=== PATIENT | female | born 1975 | race Caucasian/White ===

== ENCOUNTER 2019-03-22 17:21 | Emergency (ER) | payer OTHER ==
--- OUTSIDE RECORDS SUMMARY | 2019-03-22 17:27 | XMS REPORT | Clinical Summary ---
:1975 Author Organization [facility] Address [address] [place] [address] Care Team Providers Name Role Phone Bebeto Rivas DO Primary Care Provider Allergies Active Allergy Reactions Severity Noted Date Comments Morphine Itching 10/06/2006 Propoxyphene N-Acetaminophen Itching 10/06/2006 Medications Medication Sig Dispensed Refills Start Date End Date Status lamoTRIgine Take 100 mg 0 Active (LaMICtal) 100 MG by mouth tablet daily. methadone (DOLOPHINE) TAKE ONE (1) 0 08/24/2018 Active 10 MG tablet TABLET(S) BY MOUTH EVERY EIGHT HOURS. hydrOXYzine (ATARAX) TAKE ONE (1) 4 02/24/2019 Active 50 MG tablet TABLET(S) BY MOUTH EVERY SIX HOURS NEEDED. ferrous sulfate 0 Active (IRON) 325 mg (65 mg iron) capsule, extended release cyanocobalamin 1,000 Inject into 0 01/13/2014 Active mcg/mL injection the shoulder, thigh, or buttocks. chlorzoxazone 0 02/21/2019 Active (PARAFON FORTE) 500 mg tablet butalbital-acetaminop 0 02/13/2019 Active hen-caff (FIORICET, ESGIC) 50-325-40 mg per tablet atorvastatin 0 01/20/2019 Active (LIPITOR) 10 MG tablet ELIQUIS 5 mg tablet Take 1 5 07/20/2017 03/09/2019 Discontinued tablet by mouth 2 (two) times a day. traMADol (ULTRAM) 50 Take 1 0 06/09/2017 03/09/2019 Discontinued mg tablet tablet by mouth every 6 (six) hours as needed. Active Problems Problem Noted Date Right leg weakness 07/29/2017 Encounters Date Type Specialty Care Team Description 03/09/2019 Office Visit Orthopedic Surgery Meghana Walker Cervical spine pain (Primary Dx); MANUEL [place] Cervical spinal stenosis; Cervical disc disorder with radiculopathy; Displacement of cervical intervertebral disc without myelopathy; Cervicalgia after 03/21/2018 Immunizations Name Dates Previously Given Next Due FLUCELVAX QUAD PF (0.5mL syringe) 07/30/2017 Family History Medical History Relation Name Comments Cancer Father Diabetes Father Heart disease Father Hypertension Father Hypertension Mother Seizures Mother Relation Name Status Comments Father Mother Social History Tobacco Use Types Packs/Day Years Used Date Never Smoker Smokeless Tobacco: Never Used Alcohol Use Drinks/Week oz/Week Comments No Sex Assigned at Date Recorded Female 03/02/2019 12:40 PM CDT Job Start Date Occupation Industry Not on file Not on file Not on file Travel History Travel Start Travel End No recent travel history available. Last Filed Vital Signs Vital Sign Reading Time Taken Blood Pressure 132/73 03/09/2019 9:14 AM CDT Pulse 92 03/09/2019 9:14 AM CDT Temperature 36.9 C (98.4 F) 03/09/2019 9:14 AM CDT Respiratory Rate - - Oxygen Saturation - - Inhaled Oxygen Concentration - - Weight 75.3 kg (166 lb) 03/09/2019 9:14 AM CDT Height 175.3 cm (5' 9") 03/09/2019 9:14 AM CDT Body Mass Index 24.51 03/09/2019 9:14 AM CDT Plan of Treatment Date Type Specialty Care Team Description 03/30/2019 Office Visit Orthopedic Surgery DeniseMeghana rodriguez [place] [id number] [facility] [address] [place] [address] [phone] Health Maintenance Due Date Last Done Comments INFLUENZA VACCINE 06/02/2019 07/30/2017 Procedures Procedure Name Priority Date/Time Associated Diagnosis Comments XR CERVICAL SPINE 2 Routine 03/09/2019 9:22 AM Cervical spine pain Results for this OR 3 VW CDT procedure are in the results section. after 03/21/2018 Results XR Cervical Spine 2 Or 3 Vw (03/09/2019 9:22 AM CDT) Specimen Narrative Performed At 2 view AP lateral cervical x-rays were taken in the office today.The [facility] x-rays show segmental kyphosis at C6-7 with anterior narrowing of the disc space.C5-6 also shows some evidence of kyphosis.Straightening of the cervical spine seen. Performing Organization Address [facility] Phone Number [facility] [address] [place] [address] after 03/21/2018 [facility] [place] (Home) [facility] [phone] [place] [address] (Work) Advance Directives Patient has advance care planning documents, and code status on file. For more information, please contact:Nitesh Lakhani[address] [place] [address] Code Status Date Activated Date Inactivated Comments Full Code 07/30/2017 1:11 AM 08/01/2017 5:05 PM Code Status decision reached by: Patient
[2019-03-22 18:40] LABS: Absolute Lymphocytes (CBC) 2.3 K/uL (0.7-4.9); Absolute Monocytes 0.5 K/uL (0.1-1.3); Absolute Neutrophil 2.2 K/uL (1.8-8.0); Basophils % 0.9 % (0-1.3); Eosinophils % 2.1 % (0-4.4); Lymphocytes % 44.2 % (15.3-44.8); Monocytes % 10.2 % (3.3-12.3); RBC Red Blood Cell Count 4.73 M/uL (3.86-4.86)
[2019-03-22 18:41] LABS: Protime INR 0.91
[2019-03-22 18:51] LABS: BUN Blood Urea Nitrogen 9 mg/dL (7-18); Bicarbonate 31 mmol/L (21-32); Glucose Level 74 mg/dL (74-106); NT PRO-BNP 45 pg/mL (<125); Potassium 3.9 mmol/L (3.5-5.1); Sodium Level 142 mmol/L (136-145); Troponin (Emerg Dept Use Only) < 0.02 ng/mL (0.0-0.045)
--- NOTE | 2019-03-22 19:29 | RAD REPORT ---
EXAM DESCRIPTION: CT - Head Brain Wo Cont - 03/22/2019 7:14 pm CLINICAL HISTORY: Numbness, extremity weakness COMPARISON: CT head September 2014 TECHNIQUE: Axial 5 mm thick images of the head were obtained without IV contrast. All CT scans are performed using dose optimization technique as appropriate and may include automated exposure control or mA/KV adjustment according to patient size. FINDINGS: No intracranial hemorrhage, mass, edema or shift of mid-line structures. No acute infarcti on changes seen. No abnormal extra-axial fluid collections. Ventricles are normal. Physiologic calcif ications are present. Intracranial findings are similar to comparison. Mastoid air cells and visualized portions of the paranasal sinuses are clear. No acute bony findings. IMPRESSION: Negative non-contrast CT head examination for acute or significant finding.
--- NOTE | 2019-03-22 19:31 | RAD REPORT ---
EXAM DESCRIPTION: CT - Chest For Pe Angio - 03/22/2019 7:17 pm CLINICAL HISTORY: Chest pain, shortness of breath, history of pulmonary embolism COMPARISON: Chest films same date TECHNIQUE: Dynamically enhanced 3 mm thick images of the chest were obtained during administration o f approximately 150mL Isovue 370 IV contrast. Coronal and oblique MIP reconstruction images were gene rated and reviewed. Exam utilizes a protocol to evaluate the pulmonary arterial tree. All CT scans are performed using dose optimization technique as appropriate and may include automated exposure control or mA/KV adjustment according to patient size. FINDINGS: No pulmonary emboli are identified. No sequela seen on prior pulmonary embolic disease. The aorta as imaged shows no acute or suspicious finding. No pericardial thickening or effusion. No infiltrate or mass in the lung parenchyma. No pleural effusion or pleural thickening. No mediastinal or hilar suspicious masses. No chest wall masses or abnormal axillary lymphadenopathy. IMPRESSION: No pulmonary emboli identified. No other significant or suspicious chest findings.
--- NOTE | 2019-03-22 19:37 | ER ---
Nurse's Notes [facility] Name: Lisseth Zapata Age: 43 yrs Sex: Female : 1975 Arrival Date: 03/22/2019 Time: 17:24 Bed 24 Private MD: Diagnosis: Paresthesia of skin;Shortness of breath Presentation: 03/22 17:41 Presenting complaint: Patient states: "I woke up during the night and I started gasping aj1 for air and my whole right side was numb and now I'm scared to go to sleep. Now my chest hurts when I take a deep breath. Plus my legs have been swelling." Patient reports that the numbness happened at 0300 this morning. Chocolate Molder are equal bilaterally patient ambulated to triage with a steady gait. Transition of care: patient was not received from another setting of care. Onset of symptoms was March 22, 2019 at 03:00. Risk Assessment: Do you want to hurt yourself or someone else? Patient reports no desire to harm self or others. Initial Sepsis Screen: Does the patient meet any 2 criteria? No. Patient's initial sepsis screen is negative. Does the patient have a suspected source of infection? No. Patient's initial sepsis screen is negative. Care prior to arrival: None. 17:41 Method Of Arrival: Ambulatory aj 17:41 Acuity: RAOUL 3 aj1 Triage Assessment: 17:44 General: Appears in no apparent distress. comfortable, Behavior is calm, cooperative, aj1 appropriate for age. Pain: Complains of pain in low back area, right leg, left leg and neck Pain currently is 8 out of 10 on a pain scale. Neuro: Level of Consciousness is awake, alert, obeys commands, Oriented to person, place, time, situation, Chocolate Molder are equal bilaterally Moves all extremities. Full function Gait is steady, Speech is normal, Facial symmetry appears normal. Respiratory: Reports shortness of breath on exertion Airway is patent Respiratory effort is even, unlabored, Respiratory pattern is regular, symmetrical, Onset: The symptoms/episode began/occurred last night, the patient has mild shortness of breath. 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 - Social history:: Smoking status: Patient/guardian denies using tobacco. - Ebola Screening: : Patient denies travel to an Ebola-affected area in the 21 days before illness onset. Screenin:29 Abuse screen: Denies threats or abuse. Denies injuries from another. Nutritional mg2 screening: No deficits noted. Tuberculosis screening: No symptoms or risk factors identified. Fall Risk IV access (20 points). Assessment: 19:29 General: Appears in no apparent distress. comfortable, Behavior is calm, cooperative. mg2 Pain: Complains of pain in back and low back area Pain does not radiate. Pain currently is 2 out of 10 on a pain scale. Neuro: Level of Consciousness is awake, alert, obeys commands, Oriented to person, place, time, situation. Cardiovascular: Capillary refill < 3 seconds Patient's skin is warm and dry. Cardiovascular: Rhythm is sinus rhythm. Respiratory: Airway is patent Respiratory effort is even, unlabored, Respiratory pattern is regular, symmetrical, Breath sounds are clear bilaterally. in right upper lobe, left upper lobe, right middle lobe and left lower lobe. Respiratory: Reports shortness of breath. GI: No signs and/or symptoms were reported involving the gastrointestinal system. : No signs and/or symptoms were reported regarding the genitourinary system. EENT: No signs and/or symptoms were reported regarding the EENT system. Derm: Skin is intact, is healthy with good turgor, Skin is pink, warm \\T\\ dry. normal. Musculoskeletal: Circulation, motion, and sensation intact. Capillary refill < 3 seconds. 19:47 Reassessment: Patient appears in no apparent distress at this time. Patient and/or mg2 family updated on plan of care and expected duration. Pain level reassessed. Patient is alert, oriented x 3, equal unlabored respirations, skin warm/dry/pink. Patient states feeling better. Vital Signs: 17:44 BP 133 / 89; Pulse 88; Resp 18; Temp 99.3(TE); Pulse Ox 99% on R/A; Weight 77.11 kg aj1 (R); Height 5 ft. 9 in. (175.26 cm) (R); Pain 8/10; 19:28 BP 113 / 74; Pulse 76; Resp 18; Temp 99; Pulse Ox 100% on R/A; mg2 17:44 Body Mass Index 25.10 (77.11 kg, 175.26 cm) aj1 NIH Stroke Scale Scores: 19:34 NIHSS Score: 0 [facility] ED Course: 17:24 Patient arrived in ED. mr 17:43 Triage completed. aj1 17:44 Arm band placed on Patient placed in an exam room. aj1 17:46 Tuan Sun PA is PHCP. jr8 17:46 Nabil Morrison MD is Attending Physician. jr8 17:50 Cj Altamirano, TAYLOR is Primary Nurse. mg2 18:03 Radiology exam delayed due to lab results not completed at this time. (BUN/Creatinine). vm2 18:22 Radiology exam delayed due to lab results not completed at this time. (BUN/Creatinine). vm2 18:39 Basic Metabolic Panel Sent. mg2 18:54 XRAY Chest (1 view) In Process Unspecified. EDMS 19:[address] vm2 19:15 CT Head Brain wo Cont In Process Unspecified. EDMS 19:17 CT Chest For PE Angio In Process Unspecified. EDMS 19:29 No provider procedures requiring assistance completed. Inserted saline lock: 20 gauge mg2 in right antecubital area, using aseptic technique. Blood collected. 19:31 Patient has correct armband on for positive identification. mg2 19:47 IV discontinued, intact, bleeding controlled, No redness/swelling at site. Pressure mg2 dressing applied. Administered Medications: No medications were administered Outcome: 19:36 Discharge ordered by . [facility] 19:47 Discharged to home ambulatory, with family. mg2 19:47 Condition: stable 19:47 Discharge instructions given to patient, Instructed on discharge instructions, follow up and referral plans. Demonstrated understanding of instructions, follow-up care. 19:59 Patient left the ED. mg2 NIH Stroke Scale - NIH Stroke Score Date: 03/22/2019 Time: 19:34 Total Score = 0 1a. Level of Consciousness (LOC) - 0(Alert) 1b. Level of Consciousness (LOC) (Year \\T\\ Age) - 0(Both) 1c. LOC Commands (Open \\T\\ Closes Eyes/Sole Scraper) - 0(Both) 2. Best Gaze (Lateral Gaze Paresis) - 0(Normal) 3. Visual Field Loss - 0(No visual loss) 4. Facial Palsy - 0(Normal) 5a. Left Arm: Motor (10-second hold) - 0(No drift) 5b. Right Arm: Motor (10-second hold) - 0(No drift) 6a. Left Leg: Motor (5-second hold - always test supine) - 0(No drift) 6b. Right Leg: Motor (5-second hold - always test supine) - 0(No drift) 7. Limb Ataxia (finger/nose \\T\\ heel/swanson - test with eyes open) - 0(Absent) 8. Sensory Loss (pinprick arms/legs/face) - 0(Normal) 9. Best Language: Aphasia (description/naming/reading) - 0(No aphasia) 10. Dysarthria (speech clarity - read or repeat words) - 0(Normal) 11. Extinction and Inattention (visual/tactile/auditory/spatial/personal) - 0(No abnormality) Initials: jr8 Signatures: Dispatcher [employer] Nancy Quintana RN RN aj1 Kaylin Chan Josh, PA PA jr8 Lashaun Mena [facility] Cj Altamirano RN RN mg2
--- NOTE | 2019-03-22 19:37 | EDPHYS ---
Physician Documentation [facility] Name: Lisseth Zapata Age: 43 yrs Sex: Female : 1975 Arrival Date: 03/22/2019 Time: 17:24 Bed 24 Private MD: ED Physician Nabil Morrison HPI: 03/22 19:34 This 43 yrs old Female presents to ER via Ambulatory with complaints of jr8 Breathing Difficulty, Leg Swelling, Right side numbness, High Blood Pressure. 19:34 The patient has shortness of breath at rest. Onset: The symptoms/episode began/occurred jr8 acutely, this morning. Duration: The symptoms are continuous. The patient's shortness of breath has no apparent modifying factors. Associated signs and symptoms: Pertinent positives: numbness to right side of body. Severity of symptoms: At their worst the symptoms were moderate in the emergency department the symptoms have improved mildly. The patient has not experienced similar symptoms in the past. The patient has not recently seen a physician. 19:34 Patient stated that she woke up from sleep gasping for air around 3 AM this morning. jr8 [place] as if she was "dying". Stated that the right side of her body felt numb as well . 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 - Social history:: Smoking status: Patient/guardian denies using tobacco. - Ebola Screening: : Patient denies travel to an Ebola-affected area in the 21 days before illness onset. ROS: 19:34 Eyes: Negative for injury, pain, redness, and discharge, ENT: Negative for injury, jr8 pain, and discharge, Neck: Negative for injury, pain, and swelling, Cardiovascular: Negative for chest pain, palpitations, and edema, Abdomen/GI: Negative for abdominal pain, nausea, vomiting, diarrhea, and constipation, Back: Negative for injury and pain, MS/Extremity: Negative for injury and deformity, Skin: Negative for injury, rash, and discoloration. 19:34 Respiratory: Positive for shortness of breath, Negative for cough, dyspnea on exertion, sputum production, wheezing. 19:34 Neuro: Positive for numbness, of the right arm and right leg. Exam: 19:34 Eyes: Pupils equal round and reactive to light, extra-ocular motions intact. Lids and jr8 lashes normal. Conjunctiva and sclera are non-icteric and not injected. Cornea within normal limits. Periorbital areas with no swelling, redness, or edema. ENT: Nares patent. No nasal discharge, no septal abnormalities noted. Tympanic membranes are normal and external auditory canals are clear. Oropharynx with no redness, swelling, or masses, exudates, or evidence of obstruction, uvula midline. Mucous membranes moist. Neck: Trachea midline, no thyromegaly or masses palpated, and no cervical lymphadenopathy. Supple, full range of motion without nuchal rigidity, or vertebral point tenderness. No Meningismus. Cardiovascular: Regular rate and rhythm with a normal S1 and S2. No gallops, murmurs, or rubs. Normal PMI, no JVD. No pulse deficits. Respiratory: Lungs have equal breath sounds bilaterally, clear to auscultation and percussion. No rales, rhonchi or wheezes noted. No increased work of breathing, no retractions or nasal flaring. Abdomen/GI: Soft, non-tender, with normal bowel sounds. No distension or tympany. No guarding or rebound. No evidence of tenderness throughout. Back: No spinal tenderness. No costovertebral tenderness. Full range of motion. Skin: Warm, dry with normal turgor. Normal color with no rashes, no lesions, and no evidence of cellulitis. MS/ Extremity: Pulses equal, no cyanosis. Neurovascular intact. Full, normal range of motion. Neuro: Awake and alert, GCS 15, oriented to person, place, time, and situation. Cranial nerves II-XII grossly intact. Motor strength 5/5 in all extremities. Sensory grossly intact. Cerebellar exam normal. Normal gait. Vital Signs: 17:44 BP 133 / 89; Pulse 88; Resp 18; Temp 99.3(TE); Pulse Ox 99% on R/A; Weight 77.11 kg aj1 (R); Height 5 ft. 9 in. (175.26 cm) (R); Pain 8/10; 19:28 BP 113 / 74; Pulse 76; Resp 18; Temp 99; Pulse Ox 100% on R/A; mg2 17:44 Body Mass Index 25.10 (77.11 kg, 175.26 cm) aj1 NIH Stroke Scale Scores: 19:34 NIHSS Score: 0 jr MDM: 17:46 Patient medically screened. 19:34 Differential diagnosis: Anxiety Reaction Myocardial Infarction pneumonia, Pneumothorax jr8 Psychogenic pulmonary edema, Pulmonary Embolism Unstable Angina. Data reviewed: vital signs, nurses notes, lab test result(s), EKG, radiologic studies, CT scan, plain films, and as a result, I will discharge patient. Data interpreted: Pulse oximetry: on room air is 100 %. Interpretation: normal. Counseling: I had a detailed discussion with the patient and/or guardian regarding: the historical points, exam findings, and any diagnostic results supporting the discharge/admit diagnosis, lab results, radiology results, the need for outpatient follow up, a family practitioner, to return to the emergency department if symptoms worsen or persist or if there are any questions or concerns that arise at home. 03/22 18:00 Order name: Basic Metabolic Panel [facility] 03/22 18:00 Order name: CBC with Diff; Complete Time: 19:28 [facility] 03/22 18:00 Order name: Magnesium; Complete Time: 19:28 [facility] 03/22 18:00 Order name: NT PRO-BNP; Complete Time: 19:28 [facility] 03/22 18:00 Order name: PT-INR; Complete Time: 19:28 [facility] 03/22 18:00 Order name: Troponin (emerg Dept Use Only); Complete Time: 19:28 [facility] 03/22 18:00 Order name: XRAY Chest (1 view); Complete Time: 19:54 [facility] 03/22 18:00 Order name: EKG; Complete Time: 18:08 [facility] 03/22 18:00 Order name: Cardiac monitoring; Complete Time: 18:39 [facility] 03/22 18:00 Order name: EKG - Nurse/Tech; Complete Time: 18:40 [facility] 03/22 18:01 Order name: CT Head Brain wo Cont; Complete Time: 19:33 [facility] 03/22 18:01 Order name: CT Chest For PE Angio; Complete Time: 19:33 [facility] 03/22 18:08 Order name: Basic Metabolic Panel; Complete Time: 19:28 [facility] 03/22 18:00 Order name: IV Saline Lock; Complete Time: 18:39 03/22 18:00 Order name: Labs collected and sent; Complete Time: 18:39 03/22 18:00 Order name: O2 Per Protocol; Complete Time: 18:39 03/22 18:00 Order name: O2 Sat Monitoring; Complete Time: 18:39 Administered Medications: No medications were administered Disposition: 03/23 07:03 Co-signature as Attending Physician, Nabil Morrison MD. rn Disposition: 03/22/19 19:36 Discharged to Home. Impression: Paresthesia of skin, Shortness of breath. - Condition is Stable. - Discharge Instructions: Paresthesia, Shortness of Breath. - Medication Reconciliation Form, Thank You Letter, Antibiotic Education, Prescription Opioid Use form. - Follow up: Private Physician; When: 2 - 3 days; Reason: Recheck today's complaints, Continuance of care, Re-evaluation by your physician. - Problem is new. - Symptoms have improved. NIH Stroke Scale - NIH Stroke Score Date: 03/22/2019 Time: 19:34 Total Score = 0 1a. Level of Consciousness (LOC) - 0(Alert) 1b. Level of Consciousness (LOC) (Year \\T\\ Age) - 0(Both) 1c. LOC Commands (Open \\T\\ Closes Eyes/Central Office Mechanic) - 0(Both) 2. Best Gaze (Lateral Gaze Paresis) - 0(Normal) 3. Visual Field Loss - 0(No visual loss) 4. Facial Palsy - 0(Normal) 5a. Left Arm: Motor (10-second hold) - 0(No drift) 5b. Right Arm: Motor (10-second hold) - 0(No drift) 6a. Left Leg: Motor (5-second hold - always test supine) - 0(No drift) 6b. Right Leg: Motor (5-second hold - always test supine) - 0(No drift) 7. Limb Ataxia (finger/nose \\T\\ heel/swanson - test with eyes open) - 0(Absent) 8. Sensory Loss (pinprick arms/legs/face) - 0(Normal) 9. Best Language: Aphasia (description/naming/reading) - 0(No aphasia) 10. Dysarthria (speech clarity - read or repeat words) - 0(Normal) 11. Extinction and Inattention (visual/tactile/auditory/spatial/personal) - 0(No abnormality) Initials: jr8 Signatures: Dispatcher [employer] [facility] Nancy De La Rosa RN RN aj1 Nabil Morrison MD MD rn Roszak, Josh, PA PA jr8 Cj Altamirano, RN RN mg2 Corrections: (The following items were deleted from the chart) 03/22 18:30 18:10 Chest Single View ordered. [facility] 19:59 19:36 03/22/2019 19:36 Discharged to Home. Impression: Paresthesia of skin; mg2 Shortness of breath. Condition is Stable. Forms are Medication Reconciliation Form, Thank You Letter, Antibiotic Education, Prescription Opioid Use. Follow up: Private Physician; When: 2 - 3 days; Reason: Recheck today's complaints, Continuance of care, Re-evaluation by your physician. Problem is new. Symptoms have improved. jr8
--- NOTE | 2019-03-22 19:49 | RAD REPORT ---
EXAM DESCRIPTION: RAD - Chest Single View - 03/22/2019 6:54 pm CLINICAL HISTORY: Chest pain, shortness of breath COMPARISON: January 2017 TECHNIQUE: AP portable chest image was obtained 1830 hours . FINDINGS: Lungs are clear. Heart and vasculature are normal. No measurable pleural effusion and no p neumothorax. No acute bony abnormality seen. No acute aortic findings suspected. IMPRESSION: No acute cardiopulmonary process. No significant change from comparison.
[2019-03-22 20:06] VITALS: BP 113/74; TEMP 99; O2SAT 100
--- NOTE | 2019-03-23 10:31 | EKG ---
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
== END 2019-03-22 19:59 | disposition home or self-care (01) ==
LOC: ER 17:21
DX: R20.2 Paresthesia of skin (principal); Z88.5 Allergy status to narcotic agent; Z88.8 Allergy status to other drugs, medicaments and biological substances
CPT/HCPCS: 93005; 85025; 80048; 36415; 83735; 85610; 84484; 83880; 70450; 71275; 71045; 99284; Q9967

== ENCOUNTER 2021-06-24 17:30 | Emergency (ER) | payer OTHER ==
[2021-06-24 18:14] LABS: Absolute Lymphocytes (CBC) 2.5 K/uL (0.7-4.9); Basophils % 1.3 % (0-1.3); Hematocrit 39.4 % (36.0-45.0); Lymphocytes % 41.1 % (15.3-44.8); MPV 7.4 fL (7.6-11.3); RBC Red Blood Cell Count 4.65 M/uL (3.86-4.86)
[2021-06-24 18:37] LABS: ALT/SGPT 27 U/L (12-78); AST/SGOT 17 U/L (15-37); Albumin 3.6 g/dL (3.4-5.0); Alkaline Phosphatase 95 U/L (45-117); BUN Blood Urea Nitrogen 16 mg/dL (7-18); Bicarbonate 29 mmol/L (21-32); Bilirubin Direct < 0.1 mg/dL (0-0.2); Bilirubin Total 0.2 mg/dL (0.2-1.0); Glucose Level 121 mg/dL (74-106); Magnesium 1.9 mg/dL (1.8-2.4); NT PRO-BNP 80 pg/mL (<125); Potassium 4.1 mmol/L (3.5-5.1); Protein, Total 6.6 g/dL (6.4-8.2); Sodium Level 143 mmol/L (136-145); Troponin (Emerg Dept Use Only) < 0.02 ng/mL (0.0-0.045)
--- NOTE | 2021-06-24 20:11 | ER ---
Nurse's Notes [facility] Name: Lisseth Zapata Age: 45 yrs Sex: Female : 1975 Arrival Date: 06/24/2021 Time: 17:31 Bed DX1 Private MD: Primo Poe Diagnosis: Localized edema-left lower extremity Presentation: 06/24 17:56 Chief complaint: Patient states: Left leg swelling going up left leg x 5 days. kg 17:57 Chief complaint:. Coronavirus screen: Client denies travel out of the [place] in the last kg 14 days. At this time, unable to obtain information related to travel outside the [place] Ebola Screen: Patient negative for fever greater than or equal to 101.5 degrees Fahrenheit, and additional compatible Ebola Virus Disease symptoms Patient denies exposure to infectious person. Patient denies travel to an Ebola-affected area in the 21 days before illness onset. Initial Sepsis Screen: Does the patient meet any 2 criteria? No. Patient's initial sepsis screen is negative. Does the patient have a suspected source of infection? No. Patient's initial sepsis screen is negative. Risk Assessment: Do you want to hurt yourself or someone else? Patient reports no desire to harm self or others. Onset of symptoms was June 19, 2021. 17:57 Method Of Arrival: Ambulatory kg 17:57 Acuity: RAOUL 3 kg Triage Assessment: 17:59 General: Appears in no apparent distress. Behavior is calm, cooperative, appropriate kg for age, quiet. Pain: Complains of pain in left leg Pain radiates to left leg Pain currently is 10 out of 10 on a pain scale. QUALITY ASSURANCE MONITOR FINAL: 17:59 LMP N/A - Hysterectomy kg Historical: - Allergies: 17:59 Hydrocodone-Acetaminophen; kg 17:59 Phenergan; kg - Home Meds: 17:59 chlorzoxazone oral [Active]; methadone Oral [Active]; Topamax 50 mg oral tab 1 tab 2 kg times per day [Active]; Iron CR 250 mg Oral cpER [Active]; magnesium oxide Oral [Active]; Linzess oral [Active]; Adderall oral [Active]; alprazolam Oral [Active]; Lunesta oral [Active]; Lipitor oral [Active]; - PMHx: 17:59 CVA; TIA; HYPOGLYCEMIA; PE; Hypercholesterolemia; kg - PSHx: 17:59 section; Total abdominal hysterectomy; Appendectomy; Cholecystectomy; kg Neurostimulator; Neck fusion; gastric bypass; Exploratory laparotomy; - Immunization history:: Adult Immunizations not up to date, Client reports receiving the 2nd dose of the Covid vaccine, Date received: January 29, 2021 Moderna Client reports receiving the 1st dose of the Covid vaccine, January 02, 2021. - Social history:: Smoking status: Patient denies any tobacco usage or history of. Patient uses. Screenin:10 Abuse screen: Denies threats or abuse. Denies injuries from another. Nutritional kg screening: No deficits noted. Tuberculosis screening: No symptoms or risk factors identified. Fall Risk None identified. Vital Signs: 17:57 BP 117 / 74; Pulse 88; Resp 20; Temp 97.9(TE); Pulse Ox 99% on R/A; Weight 81.65 kg; kg Height 5 ft. 9 in. (175.26 cm); Pain 10/10; 17:57 Body Mass Index 26.58 (81.65 kg, 175.26 cm) kg ED Course: 17:31 Patient arrived in ED. ds1 17:31 Primo Poe DO is Private Physician. ds1 17:59 Triage completed. kg 17:59 Arm band placed on right wrist. kg 18:00 Debo Burgess FNP-C is PHCP. kb 18:00 Nabil Morrison MD is Attending Physician. kb 18:07 Inserted saline lock: 20 gauge in right antecubital area, using aseptic technique. mt Blood collected. 18:10 Patient has correct armband on for positive identification. kg 18:33 XRAY Chest (1 view) In Process Unspecified. EDMS 19:09 Extremity Venous Uni Ltd In Process Unspecified. EDMS 19:09 Lower Extremity Artery Uni Ltd In Process Unspecified. EDMS 19:12 Taras Gamino, RN is Primary Nurse. em 19:23 CT Chest For PE Angio In Process Unspecified. EDMS 20:27 No provider procedures requiring assistance completed. IV discontinued, intact, em bleeding controlled, No redness/swelling at site. Pressure dressing applied. Administered Medications: No medications were administered Outcome: 20:10 Discharge ordered by . kb 20:27 Discharged to home ambulatory. em 20:27 Condition: stable 20:27 Discharge instructions given to patient, Instructed on discharge instructions, follow up and referral plans. Demonstrated understanding of instructions, follow-up care. 20:28 Patient left the ED. em Signatures: Dispatcher [employer] Debo Campa, TUFTER HAND-C TUFTER HAND-Taras Beaver RN RN Rin Davis ds1 Rohit Koenigah Rosana Frias RN RN kg
--- NOTE | 2021-06-24 20:11 | EDPHYS ---
Physician Documentation [facility] Name: Lisseth Zapata Age: 45 yrs Sex: Female : 1975 Arrival Date: 06/24/2021 Time: 17:31 Bed DX1 Private MD: Primo Poe ED Physician Nabil Morrison HPI: 06/24 20:09 This 45 yrs old Female presents to ER via Ambulatory with complaints of Leg kb Swelling. 20:09 The patient presents with pain, swelling. The complaints affect the left leg. Context: kb The problem was sustained at home, resulted from an unknown cause, the patient can fully bear weight, the patient is able to ambulate, Problem is a result from a previous injury: No. Onset: The symptoms/episode began/occurred 5 day(s) ago. Modifying factors: The symptoms are alleviated by nothing. the symptoms are aggravated by nothing. Associated signs and symptoms: Pertinent positives: calf tenderness, swelling, Pertinent negatives fever, nausea, numbness, rash, tingling, vomiting, warmth, weakness. Treatment prior to arrival includes: no previous treatment. Severity of symptoms: At their worst the symptoms were moderate, in the emergency department the symptoms are unchanged. The patient has not experienced similar symptoms in the past. The patient has not recently seen a physician. left leg swelling for 5 days. RECOVERY ROOM RN: 17:59 LMP N/A - Hysterectomy kg Historical: - Allergies: 17:59 Hydrocodone-Acetaminophen; kg 17:59 Phenergan; kg - Home Meds: 17:59 chlorzoxazone oral [Active]; methadone Oral [Active]; Topamax 50 mg oral tab 1 tab 2 kg times per day [Active]; Iron CR 250 mg Oral cpER [Active]; magnesium oxide Oral [Active]; Linzess oral [Active]; Adderall oral [Active]; alprazolam Oral [Active]; Lunesta oral [Active]; Lipitor oral [Active]; - PMHx: 17:59 CVA; TIA; HYPOGLYCEMIA; PE; Hypercholesterolemia; kg - PSHx: 17:59 section; Total abdominal hysterectomy; Appendectomy; Cholecystectomy; kg Neurostimulator; Neck fusion; gastric bypass; Exploratory laparotomy; - Immunization history:: Adult Immunizations not up to date, Client reports receiving the 2nd dose of the Covid vaccine, Date received: January 29, 2021 [facility] Client reports receiving the 1st dose of the Covid vaccine, January 02, 2021 [facility]. - Social history:: Smoking status: Patient denies any tobacco usage or history of. Patient uses. ROS: 20:08 Constitutional: Negative for fever, chills, and weight loss. kb 20:08 MS/extremity: Positive for pain, of the left leg. 20:08 All other systems are negative. Exam: 20:08 Constitutional: This is a well developed, well nourished patient who is awake, alert, kb and in no acute distress. Head/Face: Normocephalic, atraumatic. ENT: Moist Mucous membranes Cardiovascular: Regular rate and rhythm with a normal S1 and S2. No gallops, murmurs, or rubs. No pulse deficits. Respiratory: Respirations even and unlabored. No increased work of breathing, no retractions or nasal flaring. Skin: Warm, dry with normal turgor. Normal color. Neuro: Awake and alert, GCS 15, oriented to person, place, time, and situation. Moves all extremities. Normal gait. Psych: Awake, alert, with orientation to person, place and time. Behavior, mood, and affect are within normal limits. 20:08 Musculoskeletal/extremity: Extremities: grossly normal except: noted in the left leg: pain, swelling, ROM: no acute changes, Circulation is intact in all extremities. Sensation intact. Weight bearing: able to fully bear weight. Vital Signs: 17:57 BP 117 / 74; Pulse 88; Resp 20; Temp 97.9(TE); Pulse Ox 99% on R/A; Weight 81.65 kg; kg Height 5 ft. 9 in. (175.26 cm); Pain 10/10; 17:57 Body Mass Index 26.58 (81.65 kg, 175.26 cm) kg MDM: 18:03 Patient medically screened. kb 20:05 ED course: All imaging wnl. Verbal reports received from radiologist. kb 20:07 Data reviewed: vital signs, nurses notes. Data reviewed: I have discussed the patient's kb presentation/case with the attending Emergency Department Physician;. Data interpreted: Pulse oximetry: on room air is 99 %. Interpretation: normal. Counseling: I had a detailed discussion with the patient and/or guardian regarding: the historical points, exam findings, and any diagnostic results supporting the discharge/admit diagnosis, lab results, radiology results, the need for outpatient follow up, a family practitioner, to return to the emergency department if symptoms worsen or persist or if there are any questions or concerns that arise at home. 20:30 ED course: Gave pt copies of lab results and informed of normal imaging studies. Could kb not give copies of imaging reports due to computer system issue. Pt informed she could obtain those at another time. . 20:33 ED course: Nurse informed me that pt was upset with me because I didn't offer her a kb work note prior to discharge. Pt also upset that our system was down for written reports. . 06/24 17:58 Order name: Basic Metabolic Panel; Complete Time: 18:42 kb 06/24 17:58 Order name: CBC with Diff; Complete Time: 18:24 kb 06/24 17:58 Order name: LFT's; Complete Time: 18:42 kb 06/24 17:58 Order name: Magnesium; Complete Time: 18:42 kb 06/24 17:58 Order name: NT PRO-BNP; Complete Time: 18:42 kb 06/24 17:58 Order name: PT-INR; Complete Time: 18:24 kb 06/24 17:58 Order name: Troponin (emerg Dept Use Only); Complete Time: 18:42 kb 06/24 17:58 Order name: XRAY Chest (1 view) 06/24 18:52 Order name: Extremity Venous [place] [facility] 06/24 17:58 Order name: EKG; Complete Time: 17:59 kb 06/24 17:58 Order name: Cardiac monitoring 06/24 17:58 Order name: EKG - Nurse/Tech 06/24 17:58 Order name: IV Saline Lock; Complete Time: 18:07 kb 06/24 17:58 Order name: Labs collected and sent; Complete Time: 18:07 kb 06/24 17:58 Order name: O2 Per Protocol 06/24 17:58 Order name: O2 Sat Monitoring 06/24 18:52 Order name: Lower Extremity Artery [place] [facility] 06/24 19:01 Order name: CT Chest For PE Angio kb Administered Medications: No medications were administered Disposition: 06/25 06:59 Co-signature as Attending Physician, Nabil Morrison MD I agree with the assessment and rn plan of care. Attestation: The patient's history, exam findings, diagnostics, and a summary of any interventions or procedures was reviewed in detail with Debo KENDRICK. Disposition Summary: 06/24/21 20:10 Discharge Ordered Location: Home kb Condition: Stable kb Diagnosis - Localized edema - left lower extremity kb Followup: kb - With: Emergency Department - When: As needed - Reason: Worsening of condition Followup: kb - With: Private Physician - When: 2 - 3 days - Reason: Recheck today's complaints, Continuance of care, Re-evaluation by your physician Discharge Instructions: - Discharge Summary Sheet kb - Edema, [id number] kb - Peripheral Edema kb Forms: - Medication Reconciliation Form kb - Thank You Letter kb - Antibiotic Education kb - Prescription Opioid Use kb - Work release form em Signatures: Dispatcher [employer] EDDebo Hauser FNP-C FNP-Ckb Nieto, Roman, MD MD rn Graham, Kristen, RN RN kg Corrections: (The following items were deleted from the chart) 06/24 18:04 17:53 Extrem Venous W Compression Michael+US.RAD.BRZ ordered. EDMS EDMS 18:49 18:00 Lower Extremity Artery Uni Ltd+US.RAD.BRZ ordered. EDMS EDMS 18:50 18:49 Extremity Venous Uni Ltd ordered. EDMS EDMS 18:52 18:03 Extremity Venous Uni Ltd+US.RAD.BRZ ordered. EDMS EDMS 18:52 18:50 Lower Extremity Artery Uni Ltd ordered. EDMS EDMS 20:50 20:33 ED course: Nurse informed me that pt was upset with me because I didn't offer her kb a work note prior to discharge. . kb
[2021-06-24 20:51] VITALS: BP 117/74; TEMP 97.9; O2SAT 99
--- OUTSIDE RECORDS SUMMARY | 2021-06-24 22:50 | XMS REPORT | Continuity of Care Document ---
:1975 Author Organization [facility] t Address [facility] [address] [place] [address] Care Team Providers Name Role Phone Anila Rivas DO Primary Care Physician Magalys GAMINO III Attending Clinician Unavailable Mone Martinez DO Attending Clinician Payers Payer Name Policy Type Policy Number Effective Date Expiration Date S [facility] [employer] [id number] 2020 00:00:00 AETNA [id number] 2013 Religion MEDICAREAETNA 00:00:00 Hospital MEDICARE HMO/PPO [id number] 4-[facility] [id number] 2020 Method ist CHOICE EXCHANGECOM 00:00:00 Hospit al [facility] EXCHANGE MARKETPLACExxxxxxx [id number] entExchange Problems Condition Condition Condition Status Onset Resolution Last Treating Co mments Source Name Details Category Date Date Treatment Clinician Date Right leg Right leg Disease Active Met hodi weakness weakness 07-29 st 00:00: Hospita 00 l Allergies, Adverse Reactions, Alerts Allergy Allergy Status Severity Reaction(s) Onset Inactive Treating Comm ents Source Name Type Date Date Clinician Morphine Propensi Active Itching 2005-11 Metho di ty to 2-05 st adverse 00:00: Hospita reaction 00 l s to drug Propoxyp Propensi Active Itching 2005-11 Metho di hene ty to 2-05 st N-Acetam adverse 00:00: Hospita inophen reaction 00 l s to drug Family History Family Member Diagnosis Comments Start Date Stop Date Source Natural mother Hypertension [facility] Natural mother Seizures [facility] Natural father Cancer [facility] Natural father Diabetes [facility] father Heart disease [facility] Natural father Hypertension [facility] Social History Social Habit Start Date Stop Date Quantity Comments Source Tobacco use and 2021-01-27 2021-01-27 Never used Religion exposure 00:00:00 00:00:00 Hospital Alcohol intake 2021-01-27 2021-01-27 Current Religion 00:00:00 00:00:00 non-drinker of Hospital alcohol (finding) Sex Assigned At [birth year] F Religion 00:00:00 00:00:00 Hospital Smoking Status Start Date Stop Date Source Never smoker Religion Hospit al Medications Ordered Filled Start Stop Current Ordering Indication Dosage Frequency Signature Comments Components Source Medication Medication Date Date Medication? Clinician (SIG) Name Name ferrous Yes [facility] sulfate 5-08 st (IRON) 325 14:17: Hospita mg (65 mg 53 l iron) capsule, extended release hydrOXYzine Yes TAKE ONE Me thodi (ATARAX) 50 4-25 (1) st MG tablet 00:00: TABLET(S) Hos ivelisse 00 BY MOUTH l EVERY SIX HOURS NEEDED. chlorzoxazo Yes Method i ne (PARAFON 4-22 st FORTE) 500 00:00: Hospita mg tablet 00 l butalbital- Yes Method i acetaminoph 4-14 st en-caff 00:00: Hospita (FIORICET, 00 l ESGIC) 50-325-40 mg per tablet atorvastati Yes Method i n (LIPITOR) 3-21 st 10 MG 00:00: Hospita tablet 00 l methadone 2017-11 Yes TAKE ONE Meth devin (DOLOPHINE) 0-23 (1) st 10 MG 00:00: TABLET(S) Hospita tablet 00 BY MOUTH l EVERY EIGHT HOURS. lamoTRIgine Yes 100mg QD Take 100 M ethodi (LaMICtal) 9-[address] 100 MG 17:59: mouth Hospita tablet 27 daily. l cyanocobala 2014-0 Yes Inject Meth devin min 1,000 3-[address] mcg/mL 00:00: shoulder, Hospit a injection 00 thigh, or l buttocks. Topamax Topamax Yes Primo [address] [facility] Vitamin B12 Vitamin B12 Yes Primo not [facility] defined [facility] Verapamil Verapamil Yes Primo [address] [facility] [address] HCl ER HCl ER [facility] Lamictal Lamictal Yes Primo [address] [facility] Chlorzoxazo Chlorzoxazo Yes Primo [address] [facility] ne ne Poe [facility] Methadose Methadose Yes Primo [address] [facility] Lipitor Lipitor Yes Primo [address] [facility] Multivitami Multivitami Yes Primo not [facility] n n [facility]oe defined [facility] Linzess Linzess Yes Primo [address] [facility] at least [facility] 30 minutes [facility]oria before the l first meal Outpati of the day ent on an Clinics empty stomach HydrOXYzine HydrOXYzine Yes Primo [address] HCl HCl Poe as needed [facility] Immunizations Ordered Immunization Filled Immunization Date Status Commen ts Source Name Name SILVIA MCNAMARA PF 2017-07-[address] 00:00:00 Hospital Vital Signs Vital Name Observation Time Observation Value Comments Source Diastolic blood 2021-01-27 20:20:03 55 mm[Hg] [facility] pressure Heart rate 2021-01-27 20:20:03 71 /min [facility] Body temperature 2021-01-27 20:20:03 36.44 Lyric [facility] Respiratory rate 2021-01-27 20:20:03 18 /min [facility] Oxygen saturation in 2021-01-27 20:20:03 99 /min [facility] Arterial blood by Pulse oximetry Systolic blood 2021-01-27 20:20:03 107 mm[Hg] [facility] pressure Body height 2021-01-27 17:47:00 175.3 cm [facility] Body weight 2021-01-27 17:47:00 78.019 kg [facility] BMI 2021-01-27 17:47:00 25.40 kg/m2 [facility] Procedures Procedure Date / Time Performing Clinician Source Performed CT RENAL STONE PROTOCOL 2021-01-27 19:04:00 Michelle [facility] CT ANGIOGRAM PE CHEST 2021-01-27 19:02:00 Katiuska Martinez [facility] COMPREHENSIVE METABOLIC 2021-01-27 18:24:00 Michelle [facility] PANEL HC COMPLETE BLD COUNT 2021-01-27 18:24:00 Katiuska Martinez [facility] W/AUTO DIFF TROPONIN, I-STAT 2021-01-27 18:24:00 Katiuska Martinez H ospital ESTIMATED GFR 2021-01-27 18:24:00 Katiuska Martinez spital ECG 12-LEAD 2021-01-27 18:17:19 Katiuska Martinez spital ECG ED PRELIMINARY 2021-01-27 18:13:36 Michelle [facility] INTERPRETATION URINALYSIS 2021-01-27 17:57:00 Katiuska Martinez spital HCG QUALITATIVE, URINE 2021-01-27 17:57:00 [facility] 2021-01-27 17:51:00 Katiuska Martinez spital Plan of Care Planned Activity Planned Date Details Comments Source Future Scheduled Test COVID-19 VACCINE (1) [facility] [code = COVID-19 VACCINE (1)] Future Scheduled Test Hepatitis C screening [facility] (procedure) [code = 057304304] Future Scheduled Test Screening for [facility] malignant neoplasm of cervix (procedure) [code = 884073210] Future Scheduled Test INFLUENZA VACCINE [facility] [code = INFLUENZA VACCINE] Encounters Start End Encounter Admission Attending Care Care Encounter Source Date/Time Date/Time Type Type Clinicians Facility Department ID 2021-05-20 Outpatient [facility] [id number] 1 [place] 01:04:28 [facility] 2021-06-03 2021-06-03 Outpatient [facility] [id number] [facility] 2021-05-02 2021-05-02 [facility] [id number] 2021-04-19 2021-04-19 Outpatient [facility] [id number] [facility] 05[facility]39:00 05:39:00 l [facility] 2021-02-05 2021-02-05 [facility] [id number] [facility] 2021-01-30 2021-01-30 [facility] [id number] [facility] 2021-01-27 2021-01-27 Emergency Svach, 1.2.840.1 [id number] [facility] 12:45:00 15:23:00 Katiuska R [address] 3.430.2.7 Hospit a .3.377417 l .8 2021-01-27 2021-01-27 Emergency SVACH, [facility] [id number] [place] 00:00:00 00:00:[address] 2021-01-27 2021-01-27 Travel 1.2.840.1 [id number] [id number] [facility] 00:00:00 00:00:[address] 3.430.2.7 0.2.7.3.698 Ho spita .3.755888 084.8 l .8 2021-01-16 2021-01-16 [facility] [id number] [facility] 2020-11-28 2020-11-28 [facility] [id number] [facility] 2020-11-21 2020-11-21 Outpatient [facility] [id number] [facility] 2020-11-20 2020-11-20 Outpatient [facility] [id number] [facility] 2020-11-05 2020-11-05 Outpatient [facility] [id number] [facility] 2020-10-30 2020-10-30 Outpatient [facility] [id number] [facility] 2020-10-02 2020-10-02 Outpatient [facility] [id number] [facility] 2020-09-26 2020-09-26 Outpatient [facility] [id number] [facility] 2020-08-22 2020-08-22 Outpatient [facility] [id number] [facility] 2020-05-22 2020-05-22 [facility] [id number] 08:30:00 08:30:00 t [employer]G[facility] s - [facility] 2020-03-28 2020-03-28 [facility] [id number] 16:34:00 16:34:00 [employer] s - Drive [facility] 2020-03-19 2020-03-19 [facility] [id number] 16:00:00 16:00:00 t [employer]Gistics s - [facility] 2020-03-15 2020-03-15 [facility] [id number] 14:46:00 14:46:00 t iGistics s [facility] 2020-01-23 2020-01-23 [facility] [id number] 16:45:00 16:45:00 [employer] [facility] 2019-11-25 2019-11-25 [facility] [id number] 08:23:00 08:23:00 [facility] 2019-11-23 2019-11-23 [facility] [id number] 15:30:00 15:30:00 [facility] Results Test Description Test Time Test Comments Results Result Comments Source ECG 12 lead 2021-01-28 15:39:14 Test Item Value Reference Range Interpretation Comme nts Ventricular rate (test code = 253) Atrial rate (test code = 255) MI interval (test code = 266) QRSD interval (test code = 260) QT interval (test code = 264) QTC interval (test code = 265) P axis 1 (test code = 267) QRS axis 1 (test code = 268) T wave axis (test code = 270) EKG impression (test code = 273) Normal sinus rhythm-Normal ECG-In automated comparison with ECG of 29-JUL-2017 17:08,-No significant change was found- [facility] Renal Stone [id number] 19:21:39EXAMINATION: CT RENAL STONE PROTOCOL CLINICAL HISTORY:45 years Female right flank pain TECHNIQUE: Multiple axial images of the abdomen and pelvis were obtained without intravenous administration of iodinated contrast. Sagittal and coronal computerized reformatted images were also obtained. The lack of intravenous contrast reduces the sensitivity of detecting solid organ disease. CT imaging was performed with iterative reconstruction techniques and/or automated exposure control to reduce radiation dose. COMPARISON: CT abdomen and pelvis 02/05/2016 IMPRESSION: LUNG BASES:The lung bases are free of acute disease. ABDOMEN:Liver: The liver is normal. 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 Nonobstructing renal calculi noted in the upperpole of the right kidney. No suspicious mass or hydronephrosis. No ureteral calculi are identified.Vascular: The abdominal aorta is nonaneurysmal.Nodes: No enlarged retroperitoneal or mesenteric lymphadenopathy.Bowel: No bowel obstruction or inflammation. Retained stool in the colon compatible with constipation. Postsurgical changes are noted status post partial gastrectomy. The appendix is not identified.Ascites/fluid collections: No ascites or fluid collections. PELVIS:No mass, fluid collection orsignificant adenopathy. Status post hysterectomy. No suspicious adnexal abnormalities. MUSCULOSKELETAL: No suspicious osseous lesions. No acute osseous abnormality. SUMMARY:1.Nonobstructing renal calculi noted in the right kidney. No hydronephrosis. No ureteral calculi identified. [facility]-[id number] Interface, Radiology Results [facility] - 01/27/2021 2:24 PM CDT EXAMINATION: CT RENAL STONE PROTOCOLCLINICAL HISTORY:45 years Female right flank painTECHNIQUE: Multiple axial images of the abdomen and pelvis were obtained without intravenous ad ministration of iodinated contrast. Sagittal and coronal computerized reformatted images were also obtained. The lack of intravenous contrast reduces the sensitivity of detecting solid organ disease. CT imaging was performed with iterative reconstruction techniques and/or automated exposure control toreduce radiation dose. COMPARISON: CT abdomen and pelvis 02/05/2016IMPRESSION:LUNG BASES:The lung bases are free of acute disease.ABDOMEN:Liver: The liver is normal. 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 Nonobstructing renal calculi noted in the upper pole of the right kidney. No suspicious mass or hydronephrosis. No ureteral calculi are identified.Vascular: The abdominal aorta is nonaneurysmal.Nodes: No enlarged retroperitoneal or mesenteric lymphadenopathy.Bowel: No bowel obstruction or inflammation. Retained stool in the colon compatible with constipation. Postsurgical changes are noted status post partial gastrectomy. The appendix is not identified.Ascites/fluid collections: No ascites or fluid collections.PELVIS:No mass, fluid collection or significant adenopathy. Status post hysterectomy. No suspicious adnexal abnormalities.MUSCULOSKELETAL: No suspicious osseous lesions. No acute osseous abnormality.SUMMARY:1.Nonobstructing renal calculi noted in the right kidney. No hydronephrosis. No ureteral calculi identified.[facility]-[id number] [facility] CT Angiogram Pe [id number] 19:17:06EXAMINATION: CT ANGIOGRAM PE CHEST CLINICAL HISTORY: hx of PE right flank and chest pain TECHNIQUE: CT angiographic images of the chest are obtained during intravenous administration of iodinatedcontrast. Computerized reformatted images and 3-D images were also obtained and archived. CT pulmonary embolus protocol. CT scans are performed using radiation dose reduction techniques. Technical factors are evaluated and adjusted to ensure appropriate moderation of exposure. Automated dose manageme nt technology is applied to adjust radiation exposure while achieving a diagnostic quality image. COMPARISON: None. FINDINGS:Visualized portions of the thyroid gland are unremarkable. The thoracic aorta has no aneurysmal dilatation. The pulmonary arteries are well opacified. There is no evidence of any pulmonary embolism. The heart has no pericardial effusion. There is no pleural effusion or pneumothorax. Visualized portions of the liver, spleen and adrenal glands are unremarkable. The gallbladder has been previously removed. There are changes of prior gastric surgery. Limited views of the kidneys are unremarkable. The right lung zone does not have any focal area of consolidation. There is no pleural effusion or pneumothorax. The left lung zone does not have any focal consolidation. There is no pleural effusion or pneumothorax. IMPRESSION:1. There is no evidence of any pulmonary embolism.2.The lung zones are clear.3. There is no pleural effusion or pneumothorax.4. The thoracic aorta has no aneurysmal dilatation or dissection. [facility]-[id number] Interface, Radiology Results 01/27/2021 2:20 PM CDT EXAMINATION: CTANGIOGRAM PE CHESTCLINICAL HISTORY: hx of PE right flank and chest painTECHNIQUE: CT angiographic images of the chest are obtained during intravenous administration of iodinated contrast. Computerized reformatted images and 3-D images were also obtained and archived. CT pulmonary embolus protocol.CT scans are performed using radiation dose reduction techniques. Technical factors are evaluated and adjusted to ensure appropriate moderation of exposure. Automated dose management technology is applied to adjust radiation exposure while achieving a diagnostic quality image.COMPARISON: None.FINDINGS:Visualized portions of the thyroid gland are unremarkable.The thoracic aorta has no aneurysmal dilatation.The pulmonary arteries are well opacified. There is no evidence of any pulmonary embolism.The heart has no pericardial effusion. There is no pleural effusion or pneumothorax.Visualized portionsof the liver, spleen and adrenal glands are unremarkable. The gallbladder has been previously removed. There are changes of prior gastric surgery. Limited views of the kidneys are unremarkable.The right lung zone does not have any focal area of consolidation. There is no pleural effusion or pneumothorax.The left lung zone does not have any focal consolidation. There is no pleural effusion or pneumothorax.IMPRESSION:1. There is no evidence of any pulmonary embolism.2. The lung zones are clear.3. There is no pleural effusion or pneumothorax.4. The thoracic aorta has no aneurysmal dilatation or dissection.[id number] Preliminary Interpretation - Not an [id number] 18:13:36Katiuska Martinez DO 01/27/2021 2:56 [facility] ED Preliminary Interpretation - Not an OrderPerformed by: Katiuska Martinez DOAuthorized by: Katiuska Martinez DO ECG reviewed by ED Physician in the absence of a oracle database developer: yes Interpretation: Interpretation: normal Rate: ECG rate: 69 ECG rate assessment: normal Rhythm: Rhythm: sinus rhythm Ectopy: Ectopy: none QRS: QRS axis: NormalConduction: Conduction: normal ST segments: ST segments: NormalT waves: T waves: [facility]
--- NOTE | 2021-06-25 10:35 | RAD REPORT ---
EXAM DESCRIPTION: RAD - Chest Single View - 06/24/2021 10:39 pm CLINICAL HISTORY: CHEST PAIN Prolonged technical malfunctions delayed the final written report. COMPARISON: Two-view chest November 2020 TECHNIQUE: AP portable chest image was obtained 06/24/2021 10:39 pm . FINDINGS: Lungs are underinflated. No acute lung parenchymal process identified. Interstitial patter n is accentuated by the low lung volume. Acute lung parenchymal process is doubtful. No aimee abnormal ity seen. Trachea is midline. Neurostimulator wires overlie the lower thoracic spine, new from prior imaging. H eart and vasculature are normal. No measurable pleural effusion and no pneumothorax. No acute bony ab normality seen. No acute aortic findings suspected. IMPRESSION: No acute cardiopulmonary process. No significant change from comparison study.
--- NOTE | 2021-06-25 10:36 | RAD REPORT ---
EXAM DESCRIPTION: US - Extremity Venous Uni Ltd - 06/24/2021 10:40 pm CLINICAL HISTORY: PAINleft leg Prolonged technical malfunctions precluded providing a written report at the time of the study. Preli minary imaging findings were provided at the time of the study. COMPARISON: None. TECHNIQUE: Real-time sonographic evaluation of the left lower extremity deep venous system was perfo rmed. FINDINGS: Normal compressibility, flow augmentation, phasic flow and spontaneous flow are identified in the left lower extremity common femoral, superficial femoral, popliteal and posterior tibial vein s. No intraluminal filling defects seen. IMPRESSION: No DVT in the left lower extremity.
--- NOTE | 2021-06-25 10:37 | RAD REPORT ---
EXAM DESCRIPTION: US - Lower Extremity Artery Uni Ltd - 06/24/2021 10:40 pm CLINICAL HISTORY: PAIN, left leg Prolonged technical malfunctions delay the final written report. Preliminary verbal report was provid ed to the referring clinician at the time of the study. COMPARISON: No comparisons TECHNIQUE: Doppler evaluation of the left lower extremity arterial tree performed. Waveforms and momo ocity values were obtained along with visual inspection. FINDINGS: Triphasic waveform pattern was seen along the length of the left lower extremity arterial tree. No abnormal velocity value or waveform pattern seen. There is no occlusion or focal flow restri cting lesion identifiable. IMPRESSION: No significant or suspicious finding in the left lower extremity arterial tree.
--- NOTE | 2021-06-25 10:38 | RAD REPORT ---
EXAM DESCRIPTION: CT - Chest For Pe Angio - 06/24/2021 10:40 pm CLINICAL HISTORY: CHEST PAIN Prolonged technical malfunctions delayed final written report. Verbal report was telephoned to the re ferring clinician at the time of the study. COMPARISON: Chest For Pe Angio dated 03/22/2019 TECHNIQUE: Dynamically enhanced 3 mm thick images of the chest were obtained during administration o f approximately 150mL Isovue 370 IV contrast. Coronal and oblique MIP reconstruction images were gene rated and reviewed. Exam utilizes a protocol to evaluate the pulmonary arterial tree. All CT scans are performed using dose optimization technique as appropriate and may include automated exposure control or mA/KV adjustment according to patient size. FINDINGS: No pulmonary emboli are identified. The aorta as imaged shows no acute or suspicious finding. No pericardial thickening or effusion. No infiltrate or mass in the lung parenchyma. No pleural effusion or pleural thickening. No mediastinal or hilar suspicious masses. No chest wall masses or abnormal axillary lymphadenopathy. Limited upper abdomen imaging shows postsurgical changes to the stomach. Cholecystectomy clips are pr esent. IMPRESSION: No pulmonary emboli identified. No other significant or suspicious findings.
== END 2021-06-24 20:28 | disposition home or self-care (01) ==
LOC: ER 17:30
DX: R60.0 Localized edema (principal); Z86.711 Personal history of pulmonary embolism; Z88.5 Allergy status to narcotic agent; Z88.8 Allergy status to other drugs, medicaments and biological substances
CPT/HCPCS: 85025; 80048; 36415; 83735; 85610; 80076; 84484; 83880; 71275; 71045; 93926; 93971; 99283; Q9967

== ENCOUNTER → 2023-12-09 | Emergency (ER) | payer OTHER ==
[2012-02-21 12:00] VITALS: BP 100/62
[~2023-12-09] MED LIST: DIPHENHYDRAMINE 50 MG/ML VIAL ONE; FENTANYL CITR 100 MCG/2 ML ONE; FOLIC ACID 5 MG/ML VIAL ONE; KETOROLAC 30 MG/ML INJ ONE; MECLIZINE HCL 12.5 MG TAB ONE; METOCLOPRAMIDE 10 MG/2mL INJ ONE; NA CHLORIDE 0.9% 1,000 ML ONE; NS KCL 20MEQ 1,000 ML IV ONE; ONDANSETRON 4 MG/2 ML VIAL ONE; POTASSIUM 25 MEQ EFFERV TAB ONE
[2023-12-09 15:43] LABS: Urine Bacteria <20 /HPF (<20); Urine Bilirubin NEGATIVE (Negative); Urine Blood 2+ (Negative); Urine Clarity Clear (Clear); Urine Color Light-Yellow (Yellow); Urine Glucose NEGATIVE (Negative); Urine Protein NEGATIVE (Negative); Urine Urobilinogen Normal (Normal); Urine pH 6.5 (5.0-7.0)
[2023-12-09 15:44] LABS: Absolute Lymphocytes (CBC) 3.4 K/uL (0.7-4.9); Hematocrit 48.4 % (36.0-45.0); Lymphocytes % 37.5 % (15.3-44.8); MCV 87.5 fL (80-100); MPV 7.3 fL (7.6-11.3); Platelets 327 thou/uL (152-406); RBC Red Blood Cell Count 5.53 M/uL (3.86-4.86)
--- NOTE | 2023-12-09 15:44 | RAD REPORT ---
EXAM DESCRIPTION: CT - Head Brain Wo Cont - 12/09/2023 2:28 pm CLINICAL HISTORY: HEADACHE COMPARISON: Head Brain Wo Cont dated 03/22/2019; HEAD BRAIN W O CONTRAST dated 09/14/2014 TECHNIQUE: Noncontrast head CT images were obtained without IV contrast. Multiplanar reformats were generated and reviewed. All CT scans are performed using dose optimization technique as appropriate and may include automated exposure control or mA/KV adjustment according to patient size. FINDINGS: No intracranial hemorrhage, mass, or edema. Midline structures are unremarkable. Normal ventricular caliber for age. Chen-white matter differentiation is preserved, without evidence of acute infarct. No abnormal extra- axial fluid collections. Mastoid air cells and visualized portions of the paranasal sinuses are clear. No acute bony findings. IMPRESSION: No evidence of an acute intracranial process.
[2023-12-09 16:10] LABS: Albumin 4.2 g/dL (3.4-5.0); Bilirubin Total 0.3 mg/dL (0.2-1.0); Potassium 2.7 mEq/L (3.5-5.1); Protein, Total 8.1 g/dL (6.4-8.2)
--- NOTE | 2023-12-09 18:30 | EDPHYS ---
Physician Documentation [facility] Name: Lisseth Land Age: 48 yrs Sex: Female : 1975 Arrival Date: 12/09/2023 Time: 14:00 Bed 5 Private MD: ED Physician Nick Catalan HPI: 12/09 16:58 This 48 yrs old Female presents to ER via Ambulatory with complaints of Ear rebeca Pain, Blurred Vision, Headache, Loss of balance. 16:58 The patient presents with pain. The complaints affect the forehead, right sikh and rebeca left sikh. Onset: The symptoms/episode began/occurred 2 day(s) ago. Modifying factors: The symptoms are alleviated by nothing, the symptoms are aggravated by nothing. Associated signs and symptoms: Pertinent positives: nausea. Severity of symptoms: At their worst the symptoms were moderate in the emergency department the symptoms are unchanged despite home interventions, Pain is currently a 8 / 10. The patient has experienced similar episodes in the past, several times. 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 - Social history:: Smoking status: Patient denies any tobacco usage or history of. ROS: 17:00 Constitutional: Negative for fever, chills, and weight loss, Eyes: Negative for injury, rebeca pain, redness, and discharge, ENT: Negative for injury, pain, and discharge, Neck: Negative for injury, pain, and swelling, Cardiovascular: Negative for chest pain, palpitations, and edema, Respiratory: Negative for shortness of breath, cough, wheezing, and pleuritic chest pain, Abdomen/GI: Negative for abdominal pain, nausea, vomiting, diarrhea, and constipation, Back: Negative for injury and pain, : Negative for injury, bleeding, discharge, and swelling, MS/Extremity: Negative for injury and deformity, Skin: Negative for injury, rash, and discoloration, Psych: Negative for depression, anxiety, suicide ideation, homicidal ideation, and hallucinations, Allergy/Immunology: Negative for hives, rash, and allergies, Endocrine: Negative for neck swelling, polydipsia, polyuria, polyphagia, and marked weight changes, Hematologic/Lymphatic: Negative for swollen nodes, abnormal bleeding, and unusual bruising, 17:00 Neuro: Positive for headache, Exam: 17:00 Constitutional: This is a well developed, well nourished patient who is awake, alert, rebeca and in no acute distress. Head/Face: Normocephalic, atraumatic. Eyes: Pupils equal round and reactive to light, extra-ocular motions intact. Lids and lashes normal. Conjunctiva and sclera are non-icteric and not injected. Cornea within normal limits. Periorbital areas with no swelling, redness, or edema. ENT: Nares patent. No nasal discharge, no septal abnormalities noted. Tympanic membranes are normal and external auditory canals are clear. Oropharynx with no redness, swelling, or masses, exudates, or evidence of obstruction, uvula midline. Mucous membranes moist. Neck: Trachea midline, no thyromegaly or masses palpated, and no cervical lymphadenopathy. Supple, full range of motion without nuchal rigidity, or vertebral point tenderness. No Meningismus. Chest/axilla: Normal chest wall appearance and motion. Nontender with no deformity. No lesions are appreciated. Cardiovascular: Regular rate and rhythm with a normal S1 and S2. No gallops, murmurs, or rubs. Normal PMI, no JVD. No pulse deficits. Respiratory: Lungs have equal breath sounds bilaterally, clear to auscultation and percussion. No rales, rhonchi or wheezes noted. No increased work of breathing, no retractions or nasal flaring. Abdomen/GI: Soft, non-tender, with normal bowel sounds. No distension or tympany. No guarding or rebound. No evidence of tenderness throughout. Back: No spinal tenderness. No costovertebral tenderness. Full range of motion. Skin: Warm, dry with normal turgor. Normal color with no rashes, no lesions, and no evidence of cellulitis. MS/ Extremity: Pulses equal, no cyanosis. Neurovascular intact. Full, normal range of motion. Neuro: Awake and alert, GCS 15, oriented to person, place, time, and situation. Cranial nerves II-XII grossly intact. Motor strength 5/5 in all extremities. Sensory grossly intact. Cerebellar exam normal. Normal gait. Psych: Awake, alert, with orientation to person, place and time. Behavior, mood, and affect are within normal limits. 17:00 Neck: ROM/movement: is normal, is supple, without pain, no range of motions limitations, no meningismus, no nuchal rigidity, negative Brudzinski's sign, negative Kernig's sign, Lymph nodes: no appreciated lymphadenopathy, Vital Signs: 14:07 BP 133 / 94; Pulse 106; Resp 18; Temp 98.2; Pulse Ox 100% ; ko1 15:07 BP 134 / 81; Pulse 96; Resp 18; Pulse Ox 100% on R/A; me1 16:00 BP 118 / 69; Pulse 78; Resp 16; Pulse Ox 100% on R/A; me1 17:00 BP 127 / 69; Pulse 80; Resp 16; Pulse Ox 100% on R/A; me1 18:00 BP 101 / 65; Pulse 81; Resp 17; Pulse Ox 100% on R/A; me1 Black Coma Score: 17:01 Eye Response: spontaneous(4). Motor Response: obeys commands(6). Verbal Response: rebeca oriented(5). Total: 15. MDM: 14:14 Patient medically screened. rebeca 17:01 Differential diagnosis: otitis media, otitis externa, cerumen impaction, cerebral rebeca vascular accident, hypertensive headache. Data reviewed: vital signs, nurses notes, lab test result(s), radiologic studies, CT scan. Consideration of Admission/Observation Escalation of care including admission/observation considered. I considered the following discharge prescriptions or medication management in the emergency department Medications were administered in the Emergency Department. See MAR. Independent interpretation of the following test(s) in the Emergency Department CT Scan: My interpretation is CT HEAD NEG. Test considered but Not performed: EKG: NO EKG. Historians other than the Patient: PATIENT WELL IN FORMED. Care significantly affected by the following chronic conditions: CVA, TIA, PE, HYPOGLYCEMIA, HIGH CHLESTEROL. Counseling: I had a detailed discussion with the patient and/or guardian regarding the historical points, exam findings, and any diagnostic results supporting the discharge/admit diagnosis, lab results, radiology results. 12/09 14:16 Order name: CBC with Diff; Complete Time: 16:[address] [facility] 12/09 14:16 Order name: Comprehensive Metabolic Panel; Complete Time: 16:[address] [facility] 12/09 14:16 Order name: Urinalysis w/ reflexes; Complete Time: 16:[address] [facility] 12/09 14:16 Order name: CT Head Brain wo Cont; Complete Time: 16:[address] [facility] Administered Medications: 15:34 Drug: Ketorolac IVP 30 mg IVP once Route: IVP; Site: right antecubital; me1 16:10 Follow up: Response: No adverse reaction; Pain is unchanged, physician notified me1 15:34 Drug: Ondansetron IVP 4 mg IVP once; over 2 minutes Route: IVP; Site: right antecubital;me1 16:09 Follow up: Response: No adverse reaction me1 15:34 Drug: Meclizine PO 50 mg PO once Route: PO; me1 16:09 Follow up: Response: No adverse reaction me1 15:35 Drug: NS 0.9% IV 1000 ml IV at 1 bolus Per protocol; 1000 mL bolus Route: IV; Rate: 1 me1 bolus; Site: right antecubital; 18:51 Follow up: IV Status: Completed infusion me1 15:35 Drug: foLIC Acid IVPB 1 mg IVPB once Route: IVPB; Site: right antecubital; me1 16:10 Follow up: Response: No adverse reaction; IV Status: Completed infusion me1 17:11 Drug: diphenhydrAMINE IVP 50 mg IVP once Route: IVP; Site: right antecubital; me1 18:01 Follow up: Response: No adverse reaction me1 17:11 Drug: metoCLOPramide IVP 10 mg IVP once; over 1 to 2 minutes Route: IVP; Site: right me1 antecubital; 18:01 Follow up: Response: No adverse reaction me1 17:11 Drug: fentaNYL (PF) IVP 50 mcg IVP once Route: IVP; Site: right antecubital; me1 18:01 Follow up: Response: No adverse reaction me1 17:11 Drug: Potassium PO Effervescent Tablet 50 mEq PO once; dissolve in 4 ounces of water or me1 juice Route: PO; 18:01 Follow up: Response: No adverse reaction me1 17:11 Drug: NS 0.9% with KCl IV 20 mEq/L 1000 ml IV at bolus continuous Route: IV; Rate: me1 bolus; Site: right antecubital; 18:40 Follow up: IV Status: Completed infusion; IV Intake: 1000ml me1 17:59 Drug: Potassium PO Effervescent Tablet 25 mEq PO once; dissolve in 4 ounces of water or me1 juice, PRIOR TO DISPO Route: PO; 18:40 Follow up: Response: No adverse reaction me1 Disposition Summary: 12/09/23 18:29 Discharge Ordered Notes: Location: Home rebeca Problem: new rebeca Symptoms: have improved rebeca Condition: Stable rebeca Diagnosis - Migraine without aura, not intractable rebeca - Hypokalemia rebeca Followup: rebeca - With: Private Physician - When: 2 - 3 days - Reason: Recheck today's complaints, Continuance of care, Re-evaluation by your physician Followup: rebeca - With: Tristian Palm MD - When: 2 - 3 days - Reason: Recheck today's complaints, Re-evaluation by your physician Discharge Instructions: - Discharge Summary Sheet rebeca - Migraine Headache rebeca - Migraine Headache, [id number] rebeca - Hypokalemia rebeca Forms: - Medication Reconciliation Form [facility] - Thank You Letter rebeca - Antibiotic Education rebeca - Prescription Opioid Use rebeca - Patient Portal Instructions [facility] - Leadership Thank You Letter [facility] Prescriptions: - ondansetron 4 mg Oral Tablet,disintegrating - take 1 tablet ORAL route every 6-8 hours for 5 days as needed for nausea and rebeca vomiting; 20 tablet; Refills: 0, Product Selection Permitted Signatures: Dispatcher [employer] Nick Leavitt MD MD cha Oliver, Kathy, TAYLOR RN ko1 Clarisa Moon RN RN me1 Corrections: (The following items were deleted from the chart) 16:40 14:17 MR STROKE PROTOCOL+MRI.RAD.BRZ ordered. DESHAUN MEADE
--- NOTE | 2023-12-09 18:30 | ER ---
Nurse's Notes [facility] Name: Lisseth Land Age: 48 yrs Sex: Female : 1975 Arrival Date: 12/09/2023 Time: 14:00 Bed 5 Private MD: Diagnosis: Migraine without aura, not intractable;Hypokalemia Presentation: 12/09 14:07 Chief complaint: Patient states: went to Dr Banerjee office for Migraine, ears hurt and ko1 neck is stiff, vision is "off", just feel weird. Migraine started last Thursday. Coronavirus screen: At this time, the client does not indicate any symptoms associated with coronavirus-19. Ebola Screen: No symptoms or risks identified at this time. Initial Sepsis Screen: Does the patient meet any 2 criteria? No. Patient's initial sepsis screen is negative. Does the patient have a suspected source of infection? No. Patient's initial sepsis screen is negative. Risk Assessment: Do you want to hurt yourself or someone else? Patient reports no desire to harm self or others. Onset of symptoms is unknown. 14:07 Method Of Arrival: Ambulatory ko1 14:07 Acuity: RAOUL 3 ko1 Triage Assessment: 14:10 General: Appears in no apparent distress. Behavior is cooperative, appropriate for age, ko1 anxious. Pain: Complains of pain in generalized. EENT: Reports blurred vision pain in top of head and forehead. 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 - Social history:: Smoking status: Patient denies any tobacco usage or history of. Screenin:30 [facility] ED Fall Risk Assessment (Adult) History of falling in the last 3 months, me1 including since admission No falls in past 3 months (0 pts) Confusion or Disorientation No (0 pts) Intoxicated or Sedated No (0 pts) Impaired Gait No (0 pts) Mobility Assist Device Used No (0 pt) Altered Elimination No (0 pt) Score/Fall Risk Level 0 - 2 = Low Risk Maintained a safe environment, Provided non-skid footwear, Hourly rounding (assess needs \\T\\ fall precautionary measures) done. Abuse screen: Denies threats or abuse. Nutritional screening: No deficits noted. Tuberculosis screening: No symptoms or risk factors identified. Assessment: 14:30 General: Appears uncomfortable, well groomed, well developed, well nourished, Behavior me1 is calm, cooperative, appropriate for age, Reports went to Dr Banerjee office for Migraine, ears hurt and neck is stiff, vision is "off", just feel weird. Migraine started last Thursday. States she had covid 2 weeks ago. Pain: Complains of pain in forehead and top of head Pain does not radiate. Pain currently is 8 out of 10 on a pain scale. Quality of pain is described as aching, Pain began last Thursday Is continuous, lasting more than 1 hour. 14:30 Neuro: Level of Consciousness is awake, alert, obeys commands, Oriented to person, me1 place, time, situation, Appropriate for age. Cardiovascular: Capillary refill < 3 seconds Patient's skin is warm and dry. Respiratory: Airway is patent Trachea midline Respiratory effort is even, unlabored, Respiratory pattern is regular, symmetrical. EENT: Reports pain in forehead and top of head and bilateral ears. Vital Signs: 14:07 BP 133 / 94; Pulse 106; Resp 18; Temp 98.2; Pulse Ox 100% ; ko1 15:07 BP 134 / 81; Pulse 96; Resp 18; Pulse Ox 100% on R/A; me1 16:00 BP 118 / 69; Pulse 78; Resp 16; Pulse Ox 100% on R/A; me1 17:00 BP 127 / 69; Pulse 80; Resp 16; Pulse Ox 100% on R/A; me1 18:00 BP 101 / 65; Pulse 81; Resp 17; Pulse Ox 100% on R/A; me1 Kimberlee Coma Score: 17:01 Eye Response: spontaneous(4). Motor Response: obeys commands(6). Verbal Response: rebeca oriented(5). Total: 15. ED Course: 14:03 Patient arrived in ED. im 14:10 Triage completed. ko1 14:14 Nick Catalan MD is Attending Physician. rebeca 14:30 CT Head Brain wo Cont In Process Unspecified. EDMS 14:30 Patient has correct armband on for positive identification. Bed in low position. Call me1 light in reach. Side rails up X 1. Provided Education on: POC. Verbalized understanding. . 14:30 No provider procedures requiring assistance completed. me1 14:35 Patient placed in an exam room, on a stretcher. ll1 15:02 Clarisa Moon, TAYLOR is Primary Nurse. me1 15:21 Inserted saline lock: 22 gauge in right antecubital area, using aseptic technique. me1 15:35 Urinalysis w/ reflexes Sent. me1 15:35 Comprehensive Metabolic Panel Sent. me1 15:35 CBC with Diff Sent. me1 18:29 Tristian Palm MD is Referral Physician. rebeca 18:51 IV discontinued, intact, bleeding controlled, No redness/swelling at site. Pressure me1 dressing applied. Administered Medications: 15:34 Drug: Ketorolac IVP 30 mg IVP once Route: IVP; Site: right antecubital; me1 16:10 Follow up: Response: No adverse reaction; Pain is unchanged, physician notified me1 15:34 Drug: Ondansetron IVP 4 mg IVP once; over 2 minutes Route: IVP; Site: right antecubital;me1 16:09 Follow up: Response: No adverse reaction me1 15:34 Drug: Meclizine PO 50 mg PO once Route: PO; me1 16:09 Follow up: Response: No adverse reaction me1 15:35 Drug: NS 0.9% IV 1000 ml IV at 1 bolus Per protocol; 1000 mL bolus Route: IV; Rate: 1 me1 bolus; Site: right antecubital; 18:51 Follow up: IV Status: Completed infusion me1 15:35 Drug: foLIC Acid IVPB 1 mg IVPB once Route: IVPB; Site: right antecubital; me1 16:10 Follow up: Response: No adverse reaction; IV Status: Completed infusion me1 17:11 Drug: diphenhydrAMINE IVP 50 mg IVP once Route: IVP; Site: right antecubital; me1 18:01 Follow up: Response: No adverse reaction me1 17:11 Drug: metoCLOPramide IVP 10 mg IVP once; over 1 to 2 minutes Route: IVP; Site: right me1 antecubital; 18:01 Follow up: Response: No adverse reaction me1 17:11 Drug: fentaNYL (PF) IVP 50 mcg IVP once Route: IVP; Site: right antecubital; me1 18:01 Follow up: Response: No adverse reaction me1 17:11 Drug: Potassium PO Effervescent Tablet 50 mEq PO once; dissolve in 4 ounces of water or me1 juice Route: PO; 18:01 Follow up: Response: No adverse reaction me1 17:11 Drug: NS 0.9% with KCl IV 20 mEq/L 1000 ml IV at bolus continuous Route: IV; Rate: me1 bolus; Site: right antecubital; 18:40 Follow up: IV Status: Completed infusion; IV Intake: 1000ml me1 17:59 Drug: Potassium PO Effervescent Tablet 25 mEq PO once; dissolve in 4 ounces of water or me1 juice, PRIOR TO DISPO Route: PO; 18:40 Follow up: Response: No adverse reaction me1 Medication: 14:30 VIS not applicable for this client. me1 Intake: 18:40 IV: 1000ml; Total: 1000ml. me1 Outcome: 18:29 Discharge ordered by . rebeca 18:50 Discharged to home ambulatory, with significant other, wy1 18:50 Condition: stable 18:50 Discharge instructions given to patient, significant other, Instructed on discharge instructions, follow up and referral plans. medication usage, Demonstrated understanding of instructions, follow-up care, medications, Prescriptions given X 1, 18:51 Patient left the ED. me1 Signatures: Dispatcher [employer] Nick Leavitt MD MD cha Lewis, Lynsay RN RN ll1 Monserrat Rosario RN RN ko1 Argelia Bauman Michelle, RN RN me1 Corrections: (The following items were deleted from the chart) 14:35 14:10 Arm band placed on right wrist. Patient placed in an exam room, on a stretcher, ll1 on pulse oximetry, ko1 16:03 14:07 Chief complaint: Patient states: went to Dr Banerjee office for Migraine, ears hurt me1 and neck is stiff, vision is "off", just feel weird. Migraine started last Thursday. ko1
== END ==
LOC: ER 14:00
DX: G43.009 Migraine without aura, not intractable, without status migrainosus (principal); E87.6 Hypokalemia; Z88.5 Allergy status to narcotic agent; Z88.8 Allergy status to other drugs, medicaments and biological substances
CPT/HCPCS: 85025; 81001; 36415; 80053; 70450; J8597; J2765; J1200; J3010; J2405; J7030; J3480

== ENCOUNTER 2024-03-28 12:31 | Emergency (ER) | payer OTHER ==
[2024-03-28] MEDS ORDERED: KETOROLAC 30 MG/ML INJ ONE (13:24)
[2024-03-28] MEDS ORDERED: dexAMETHasone 10 MG/ML VIAL ONE (13:24)
[2024-03-28] MEDS ORDERED: MORPHINE 4 MG/ML SYR ONE (13:24)
[2024-03-28] MEDS ORDERED: DIAZEPAM 5 MG TABLET ONE (13:25)
[2024-03-28] MEDS ORDERED: NA CHLORIDE 0.9% 1,000 ML ONE (13:25)
--- NOTE | 2024-03-28 13:36 | RAD REPORT ---
EXAM DESCRIPTION: CT - C Spine Wo Con - 03/28/2024 1:20 pm CLINICAL HISTORY: PAIN COMPARISON: No comparisons TECHNIQUE: CT Scan was obtained of the cervical spine without contrast. Reformats were provided in t he sagittal and coronal plane. FINDINGS: No acute fracture of the cervical spine. No traumatic malalignment. No prevertebral edema. No significant focal degenerative changes. No suspicious thyroid nodules or lymphadenopathy. The varinder g apices are clear. Interbody spacer present at C6-7. This appears well-positioned. IMPRESSION: No fracture or traumatic malalignment of the cervical spine.
[2024-03-28] MEDS ORDERED: ONDANSETRON 4 MG/2 ML VIAL ONE (13:39)
--- NOTE | 2024-03-28 13:39 | RAD REPORT ---
EXAM DESCRIPTION: CT - Spine Lumbar Wo Con - 03/28/2024 1:23 pm CLINICAL HISTORY: Radiculopathy. PAIN COMPARISON: No comparisons TECHNIQUE: Axial noncontrast CT imaging of the lumbar spine was performed with coronal and sagittal re-formatted images. All CT scans are performed using dose optimization technique as appropriate and may include automated exposure control or mA/KV adjustment according to patient size. FINDINGS: No acute lumbar spine fracture seen. No aggressive marrow pattern or malalignment. Spinal stimulator noted. 3 mm nonobstructing stone in the upper pole right kidney. Mild atherosclerosis. Paraspinal tissues are normal in thickness. No paraspinal abscess or hematoma seen. Intervertebral disc disease assessment is inherently limited by CT. Within these limitations, no high -grade canal stenosis suspected. Mild bilateral neural foraminal narrowing is present at L4-5 seconda ry to facet hypertrophy. There is also a small broad-based disc bulge. IMPRESSION: No acute fracture of the lumbar spine. Mild degenerate changes as noted above.
[2024-03-28 13:58] LABS: Absolute Basophils 0.1 K/uL (0-0.5); Absolute Eosinophils 0.5 K/uL (0-0.5); Absolute Monocytes 0.4 K/uL (0.1-1.3); Absolute Neutrophil 4.6 K/uL (1.8-8.0); Basophils % 1.3 % (0-1.3); Eosinophils % 6.1 % (0-4.4); Hematocrit 44.3 % (36.0-45.0); Hemoglobin 13.9 g/dL (12.0-15.0); Lymphocytes % 26.5 % (15.3-44.8); MCH 27.8 pg (27.0-35.0); MCHC 31.5 g/dL (32.0-36.0); MCV 88.5 fL (80-100); MPV 7.9 fL (7.6-11.3); Monocytes % 5.6 % (3.3-12.3); Neutrophils % 60.5 % (41.7-73.7); Platelets 289 thou/uL (152-406); RBC Red Blood Cell Count 5.01 M/uL (3.86-4.86); Red Cell Distribution Width 14.2 % (12.1-15.2)
[2024-03-28 14:06] LABS: Albumin 3.5 g/dL (3.4-5.0); Anion Gap 6.7 mEq/L (5.0-15.0); Bilirubin Total 0.4 mg/dL (0.2-1.0); Globulin 3.4 g/dL (2.3-3.5); Potassium 3.7 mEq/L (3.5-5.1); Protein, Total 6.9 g/dL (6.4-8.2); Troponin High Sensitivity 3.1 pg/mL (<58.9)
--- NOTE | 2024-03-28 15:33 | ER ---
Nurse's Notes [facility] Name: Lisseth Land Age: 48 yrs Sex: Female : 1975 Arrival Date: 03/28/2024 Time: 12:31 Bed 7 Private MD: Diagnosis: Strain of muscle, fascia and tendon at neck level;Strain of muscle, fascia and tendon at neck level, initial encounter;Low back pain Presentation: 03/28 12:56 Chief complaint: Patient states: Neck pain onset last night. Pt states that it feels cm10 likes somebody is stepping on her neck. Coronavirus screen: Client denies travel out of the [place] in the last 14 days. At this time, the client does not indicate any symptoms associated with coronavirus-19. Ebola Screen: Patient denies travel to an Ebola-affected area in the 21 days before illness onset. No symptoms or risks identified at this time. Initial Sepsis Screen: Does the patient meet any 2 criteria? No. Patient's initial sepsis screen is negative. Does the patient have a suspected source of infection? No. Patient's initial sepsis screen is negative. Risk Assessment: Do you want to hurt yourself or someone else? Patient reports no desire to harm self or others. Onset of symptoms was March 28, 2024. 12:56 Method Of Arrival: Ambulatory cm10 12:56 Acuity: RAOUL 3 cm10 Triage Assessment: 12:57 General: Appears in no apparent distress. comfortable, Behavior is calm, cooperative. cm10 Pain: Complains of pain in neck Pain currently is 10 out of 10 on a pain scale. Neuro: No deficits noted. Level of Consciousness is awake, alert, obeys commands, Oriented to person, place, time, situation, Appropriate for age. Respiratory: No deficits noted. Airway is patent Respiratory effort is even, unlabored, Respiratory pattern is regular, symmetrical. Historical: - Allergies: 12:54 Hydrocodone-Acetaminophen; mb9 12:54 Phenergan; mb9 - PMHx: 12:54 CVA; Hypercholesterolemia; HYPOGLYCEMIA; PE; TIA; mb9 - PSHx: 12:54 Appendectomy; section; Cholecystectomy; Exploratory laparotomy; Gastric mb9 Bypass; neck fusion; Neurostimulator; Total abdominal hysterectomy; - Immunization history:: Adult Immunizations up to date. - Infectious Disease History:: Denies. - Family history:: not pertinent. - Social history:: Smoking status: Patient denies any tobacco usage or history of. Screenin:50 [facility] ED Fall Risk Assessment (Adult) History of falling in the last 3 months, ko1 including since admission No falls in past 3 months (0 pts) Confusion or Disorientation No (0 pts) Intoxicated or Sedated No (0 pts) Impaired Gait No (0 pts) Mobility Assist Device Used No (0 pt) Altered Elimination No (0 pt) Score/Fall Risk Level 0 - 2 = Low Risk Oriented to surroundings, Maintained a safe environment, Educated pt \T\ family on fall prevention, incl call for assistance when getting out of bed, Assessed \T\ reinforced patient's understanding of fall precautions, Provided non-skid footwear, Hourly rounding (assess needs \T\ fall precautionary measures) done. Abuse screen: Denies threats or abuse. Denies injuries from another. Nutritional screening: No deficits noted. Tuberculosis screening: No symptoms or risk factors identified. Assessment: 13:50 Neuro: No deficits noted. ko1 16:35 Neuro: Guerrero Agitation-Sedation Scale (RASS): 0 - Alert and Calm. Neuro: Level of ko1 Consciousness is awake, alert, obeys commands, Oriented to person, place, time, situation, Appropriate for age. Vital Signs: 12:56 BP 147 / 87; Pulse 83; Resp 18; Temp 98.1(O); Pulse Ox 98% ; Weight 95.25 kg; Height 5 cm10 ft. 9 in. ; Pain 10/10; 13:50 BP 113 / 78; Pulse 74; Resp 16; Pulse Ox 99% ; ko1 16:35 BP 117 / 72; Pulse 68; Resp 16; Pulse Ox 99% ; ko1 12:56 Body Mass Index 31.01 (95.25 kg, 175.26 cm) cm10 12:56 Pain Scale: Adult cm10 ED Course: 12:34 Patient arrived in ED. ra3 12:49 Nick Catalan MD is Attending Physician. rebeca 12:54 Kaylin Suero RN is Primary Nurse. mb9 12:54 Arm band placed on. mb9 12:54 Placed in gown. Bed in low position. Call light in reach. Side rails up X 1. Provided mb9 Education on: press call light if needing anything. Client placed on continuous cardiac and pulse oximetry monitoring. NIBP monitoring applied. monitor car operator on. Door closed. Noise minimized. Warm blanket given. Pillow given. 12:57 Triage completed. cm10 13:[address] hb 13:19 CT C Spine In Process Unspecified. EDMS 13:19 CT Lumbar Spine Wo Con In Process Unspecified. EDMS 13:22 Monserrat Rosario, RN is Primary Nurse. ko1 13:43 EKG done, by ED staff, reviewed by Nick Catalan MD. mb9 13:45 Assisted to bathroom. ko1 13:45 Initial lab(s) drawn, by me, sent to lab. Inserted saline lock: 20 gauge in right ko1 antecubital area, using aseptic technique. Blood collected. 13:48 D-Dimer Sent. ko1 13:48 Troponin HS Sent. ko1 13:48 Comprehensive Metabolic Panel Sent. ko1 13:48 CBC with Diff Sent. ko1 14:49 No provider procedures requiring assistance completed. ko1 15:32 Tristian Palm MD is Referral Physician. rebeca 16:35 IV discontinued, intact, bleeding controlled, No redness/swelling at site. Pressure ko1 dressing applied. Administered Medications: 13:47 Drug: NS 0.9% IV 1000 ml IV at 1 bolus Per protocol; 1000 mL bolus Route: IV; Rate: 1 ko1 bolus; Site: right antecubital; 15:00 Follow up: Response: No adverse reaction; IV Status: Completed infusion; IV Intake: ko1 1000ml 13:48 Drug: Ketorolac IVP 30 mg IVP once Route: IVP; Site: right antecubital; ko1 14:03 Follow up: Response: No adverse reaction ko1 13:48 Drug: Ondansetron IVP 4 mg IVP once; over 2 minutes Route: IVP; Site: right antecubital;ko1 14:05 Follow up: Response: No adverse reaction ko1 13:48 Drug: Diazepam PO 10 mg PO once Route: PO; ko1 14:20 Follow up: Response: No adverse reaction ko1 13:49 Drug: Decadron - Dexamethasone IVP 10 mg IVP once Route: IVP; Site: right antecubital; ko1 14:04 Follow up: Response: No adverse reaction ko1 13:49 Drug: morphine IVP or IV 4 mg IVP once over 4 mins Route: IVP; Infused Over: 4 mins; ko1 Site: right antecubital; 14:04 Follow up: Response: No adverse reaction; Pain is decreased; RASS: Alert and Calm (0) ko1 Medication: 12:54 VIS not applicable for this client. mb9 Intake: 15:00 IV: 1000ml; Total: 1000ml. ko1 Outcome: 15:32 Discharge ordered by MD. jose 16:35 Discharged to home ambulatory, with family, ko1 16:35 Condition: improved 16:35 Discharge instructions given to patient, family, Instructed on discharge instructions, follow up and referral plans. medication usage, Demonstrated understanding of instructions, follow-up care, medications, Prescriptions given X 3, 16:37 Patient left the ED. ko1 Signatures: Dispatcher [employer] EDNick Arriaga MD MD cha Baxter, Heather RN Monserrat Holliday RN RN ko1 Kaylin Suero RN RN mb9 Estelita Ham RN RN cm10 Connie Felder 3
--- NOTE | 2024-03-28 15:33 | EDPHYS ---
Physician Documentation [facility] Name: Lisseth Land Age: 48 yrs Sex: Female : 1975 Arrival Date: 03/28/2024 Time: 12:31 Bed 7 Private MD: CHAD Physician Nick Catalan HPI: 03/28 15:26 This 48 yrs old Female presents to ER via Ambulatory with complaints of Neck rebeca Problem - Pressure, Numbness - Leg. 15:26 The patient or guardian complains of decreased range of motion, pain, spasm. The rebeca symptoms are located on the base of the skull and neck. Onset: The symptoms/episode began/occurred 3 day(s) ago. Context: The problem was sustained at an unknown location, The neck injury/problem resulted from from unknown cause. Associated signs and symptoms: Pertinent positives: tingling, weakness, of the scalp, right arm, left arm, right leg and left leg. The pain does not radiate. Modifying factors: The symptoms are alleviated by nothing. remaining still, the symptoms are aggravated by movement. Severity of symptoms: At their worst the symptoms were mild, moderate, in the emergency department the symptoms are unchanged. The patient has experienced similar episodes in the past, multiple times. Historical: - Allergies: 12:54 Hydrocodone-Acetaminophen; mb9 12:54 Phenergan; mb9 - PMHx: 12:54 CVA; Hypercholesterolemia; HYPOGLYCEMIA; PE; TIA; mb9 - PSHx: 12:54 Appendectomy; section; Cholecystectomy; Exploratory laparotomy; Gastric mb9 Bypass; neck fusion; Neurostimulator; Total abdominal hysterectomy; - Immunization history:: Adult Immunizations up to date. - Infectious Disease History:: Denies. - Family history:: not pertinent. - Social history:: Smoking status: Patient denies any tobacco usage or history of. ROS: 15:26 Constitutional: Negative for fever, chills, and weight loss, Eyes: Negative for injury, rebeca pain, redness, and discharge, ENT: Negative for injury, pain, and discharge, Cardiovascular: Negative for chest pain, palpitations, and edema, Respiratory: Negative for shortness of breath, cough, wheezing, and pleuritic chest pain, Abdomen/GI: Negative for abdominal pain, nausea, vomiting, diarrhea, and constipation, Back: Negative for injury and pain, : Negative for injury, bleeding, discharge, and swelling, MS/Extremity: Negative for injury and deformity, Skin: Negative for injury, rash, and discoloration, Neuro: Negative for headache, weakness, numbness, tingling, and seizure, Psych: Negative for depression, anxiety, suicide ideation, homicidal ideation, and hallucinations, Allergy/Immunology: Negative for hives, rash, and allergies, Endocrine: Negative for neck swelling, polydipsia, polyuria, polyphagia, and marked weight changes, Hematologic/Lymphatic: Negative for swollen nodes, abnormal bleeding, and unusual bruising, 15:26 Neck: Positive for pain with movement, pain at rest, tenderness, of the left trapezius, right trapezius and thoracic area, Exam: 15:26 Constitutional: This is a well developed, well nourished patient who is awake, alert, rebeca and in no acute distress. Head/Face: Normocephalic, atraumatic. Eyes: Pupils equal round and reactive to light, extra-ocular motions intact. Lids and lashes normal. Conjunctiva and sclera are non-icteric and not injected. Cornea within normal limits. Periorbital areas with no swelling, redness, or edema. ENT: Nares patent. No nasal discharge, no septal abnormalities noted. Tympanic membranes are normal and external auditory canals are clear. Oropharynx with no redness, swelling, or masses, exudates, or evidence of obstruction, uvula midline. Mucous membranes moist. Chest/axilla: Normal chest wall appearance and motion. Nontender with no deformity. No lesions are appreciated. Cardiovascular: Regular rate and rhythm with a normal S1 and S2. No gallops, murmurs, or rubs. Normal PMI, no JVD. No pulse deficits. Respiratory: Lungs have equal breath sounds bilaterally, clear to auscultation and percussion. No rales, rhonchi or wheezes noted. No increased work of breathing, no retractions or nasal flaring. Abdomen/GI: Soft, non-tender, with normal bowel sounds. No distension or tympany. No guarding or rebound. No evidence of tenderness throughout. Back: No spinal tenderness. No costovertebral tenderness. Full range of motion. Skin: Warm, dry with normal turgor. Normal color with no rashes, no lesions, and no evidence of cellulitis. MS/ Extremity: Pulses equal, no cyanosis. Neurovascular intact. Full, normal range of motion. Neuro: Awake and alert, GCS 15, oriented to person, place, time, and situation. Cranial nerves II-XII grossly intact. Motor strength 5/5 in all extremities. Sensory grossly intact. Cerebellar exam normal. Normal gait. Psych: Awake, alert, with orientation to person, place and time. Behavior, mood, and affect are within normal limits. 15:26 Neck: External neck: is normal, no abrasions, no abscess, no cellulitis, no ecchymosis, no erythema, no laceration, no mass, no rash, no swelling, no tenderness, C-spine: appears grossly normal, no acute changes, Trachea: is midline with no obvious abnormalities, no acute changes, ROM/movement: pain, that is mild, with rotation to the left, with rotation to the right, with extension, with flexion, limited range of motion, that is mild, Meningeal signs: are not present, Kernig's sign is negative, Brudzinski's sign is negative, nuchal rigidity, is not appreciated, Lymph nodes: no appreciated lymphadenopathy, 15:31 ECG was reviewed by the Attending Physician. rebeca 15:31 Musculoskeletal/extremity: DVT Exam: No signs of deep vein thrombosis. no pain, no swelling, no tenderness, negative Homans' sign noted on exam, no appreciated bluish discoloration, no erythema, no increased warmth, Vital Signs: 12:56 BP 147 / 87; Pulse 83; Resp 18; Temp 98.1(O); Pulse Ox 98% ; Weight 95.25 kg; Height 5 cm10 ft. 9 in. ; Pain 10/10; 13:50 BP 113 / 78; Pulse 74; Resp 16; Pulse Ox 99% ; ko1 16:35 BP 117 / 72; Pulse 68; Resp 16; Pulse Ox 99% ; ko1 12:56 Body Mass Index 31.01 (95.25 kg, 175.26 cm) cm10 12:56 Pain Scale: Adult cm10 MDM: 12:49 Patient medically screened. rebeca 15:29 Differential diagnosis: arthritis, Cervical Disc Herniation Cervical Raiculopathy rebeca Cervical Spondylosis cervical strain, Degenerative Disc Disease fracture, Neck Contusion Osteoarthritis Spinal Cord Compression Spondylolisthesis Spondylosis subluxation, Thoracic Outlet Syndrome torticollis, Vertical Compression Injury. Data reviewed: vital signs, nurses notes, lab test result(s), EKG, radiologic studies, CT scan, plain films. Consideration of Admission/Observation Escalation of care including admission/observation considered. I considered the following discharge prescriptions or medication management in the emergency department Medications were administered in the Emergency Department. See MAR. Independent interpretation of the following test(s) in the Emergency Department EKG: See my EKG interpretation above. Test considered but Not performed: MRI: no c spine mri. Care significantly affected by the following chronic conditions: Obesity, cva, high chlesterol, pe, tia. Counseling: I had a detailed discussion with the patient and/or guardian regarding the historical points, exam findings, and any diagnostic results supporting the discharge/admit diagnosis, lab results, radiology results, the need for outpatient follow up, for definitive care, a family practitioner, a neurologist. 03/28 13:07 Order name: CBC with Diff; Complete Time: 14:35 [facility] 03/28 13:07 Order name: Comprehensive Metabolic Panel; Complete Time: 14:35 [facility] 03/28 13:07 Order name: Troponin HS; Complete Time: 14:35 [facility] 03/28 13:07 Order name: D-Dimer; Complete Time: 14:35 [facility] 03/28 13:07 Order name: CT C Spine; Complete Time: 14:35 [facility] 03/28 13:07 Order name: CT Lumbar Spine Wo Con; Complete Time: 14:35 [facility] 03/28 13:07 Order name: EKG - Nurse/Tech; Complete Time: 13:43 rebeca EC:31 Rate is 72 beats/min. Rhythm is regular. QRS [place] is Normal. IA interval is normal. QRS rebeca interval is normal. QT interval is normal. No Q waves. T waves are Normal. No ST changes noted. Clinical impression: Normal ECG and No evidence of ischemia. Interpreted by me. Reviewed by me. Administered Medications: 13:47 Drug: NS 0.9% IV 1000 ml IV at 1 bolus Per protocol; 1000 mL bolus Route: IV; Rate: 1 ko1 bolus; Site: right antecubital; 15:00 Follow up: Response: No adverse reaction; IV Status: Completed infusion; IV Intake: ko1 1000ml 13:48 Drug: Ketorolac IVP 30 mg IVP once Route: IVP; Site: right antecubital; ko1 14:03 Follow up: Response: No adverse reaction ko1 13:48 Drug: Ondansetron IVP 4 mg IVP once; over 2 minutes Route: IVP; Site: right antecubital;ko1 14:05 Follow up: Response: No adverse reaction ko1 13:48 Drug: Diazepam PO 10 mg PO once Route: PO; ko1 14:20 Follow up: Response: No adverse reaction ko1 13:49 Drug: Decadron - Dexamethasone IVP 10 mg IVP once Route: IVP; Site: right antecubital; ko1 14:04 Follow up: Response: No adverse reaction ko1 13:49 Drug: morphine IVP or IV 4 mg IVP once over 4 mins Route: IVP; Infused Over: 4 mins; ko1 Site: right antecubital; 14:04 Follow up: Response: No adverse reaction; Pain is decreased; RASS: Alert and Calm (0) ko1 Disposition Summary: 03/28/24 15:32 Discharge Ordered Notes: Location: Home rebeca Problem: new rebeca Symptoms: have improved rebeca Condition: Stable rebeca Diagnosis - Strain of muscle, fascia and tendon at neck level rebeca - Strain of muscle, fascia and tendon at neck level, initial encounter rebeca - Low back pain rebeca Followup: rebeca - With: Private Physician - When: 2 - 3 days - Reason: Recheck today's complaints, Continuance of care, Re-evaluation by your physician Followup: rebeca - With: Tristian Palm MD - When: 2 - 3 days - Reason: Recheck today's complaints, Continuance of care, Re-evaluation by your physician Discharge Instructions: - Discharge Summary Sheet rebeca - Acute Back Pain, Adult rebeca - Chronic Back Pain rebeca - Muscle Strain rebeca - Musculoskeletal Pain rebeca - Chronic Back Pain, [id number] rebeca - Muscle Strain, [id number] rebeca - Radicular Pain rebeca - Cervical Strain and Sprain Rehab-SportsMed rebeca Forms: - Medication Reconciliation Form rebeca - Antibiotic Education reebca - Prescription Opioid Use rebeca - Patient Portal Instructions [facility] - Leadership Thank You Letter [facility] Prescriptions: - dexamethasone 4 mg Oral tablet - take 1 tablet ORAL route daily; 4 tablet; Refills: 0, Product Selection rebeca Permitted - Diclofenac Sodium 75 mg Oral tablet, delayed release (enteric coated) - take 1 tablet ORAL route 2 times per day; 20 tablet; Refills: 0, Product rebeca Selection Permitted - Cyclobenzaprine 5 mg Oral Tablet - take 1 tablet ORAL route 3 times per day As needed; 15 tablet; Refills: 0, rebeca Product Selection Permitted Signatures: Dispatcher [employer] Nick Leavitt MD MD cha Oliver, Kathy RN RN ko1 Kaylin Suero RN RN mb9
[2024-03-28 17:14] VITALS: BP 117/72; TEMP 98.1; O2SAT 99
--- NOTE | 2024-03-29 14:14 | EKG ---
Test Date: 2024-03-28 Test Time: 13:41:10 News Intern: MB MEASUREMENT RESULTS: Intervals: Rate: 72 WA: 168 QRSD: 84 QT: 394 QTc: 431 [place]vale: P: 51 WA: 168 QRS: 84 T: 65 INTERPRETIVE STATEMENTS: Normal sinus rhythm Normal ECG No previous ECG available for comparison Electronically Signed On 03-29-24 14:11:37 CDT by Glynn Thomas
== END 2024-03-28 16:37 | disposition home or self-care (01) ==
LOC: ER 12:31
DX: S16.1XXA Strain of muscle, fascia and tendon at neck level, initial encounter (principal); M54.50 Low back pain, unspecified
CPT/HCPCS: 96361; 93005; 85025; 36415; 85379; 84484; 80053; 72131; 72125; 96375; 96374; 99285; J1100; J2405; J7030

== ENCOUNTER 2025-02-06 13:37 | Emergency (ER) | payer OTHER ==
[2025-02-06] MEDS ORDERED: KETOROLAC 30 MG/ML INJ ONE (15:29)
[2025-02-06] MEDS ORDERED: DIPHENHYDRAMINE 50 MG/ML VIAL ONE (15:29)
[2025-02-06] MEDS ORDERED: METOCLOPRAMIDE 10 MG/2mL INJ ONE (15:29)
[2025-02-06] MEDS ORDERED: NA CHLORIDE 0.9% 1,000 ML ONE (15:29)
[2025-02-06 15:39] LABS: Absolute Eosinophils 0.6 K/uL (0-0.5); Absolute Lymphocytes (CBC) 2.2 K/uL (0.7-4.9); Absolute Monocytes 0.5 K/uL (0.1-1.3); Absolute Neutrophil 3.3 K/uL (1.8-8.0); Basophils % 0.7 % (0-1.3); Eosinophils % 8.4 % (0-4.4); Hematocrit 38.4 % (36.0-45.0); Hemoglobin 12.8 g/dL (12.0-15.0); Lymphocytes % 33.5 % (15.3-44.8); MCH 27.7 pg (27.0-35.0); MCHC 33.3 g/dL (32.0-36.0); MCV 83.2 fL (80-100); MPV 7.4 fL (7.6-11.3); Neutrophils % 50.4 % (41.7-73.7); Platelets 251 thou/uL (152-406); RBC Red Blood Cell Count 4.61 M/uL (3.86-4.86); Red Cell Distribution Width 15.1 % (12.1-15.2)
[2025-02-06 15:44] LABS: PT Prothrombin Time 10.8 SECONDS (10-13.0); Protime INR 0.94
[2025-02-06 15:45] LABS: Anion Gap 4.4 mEq/L (5.0-15.0); Potassium 3.4 mEq/L (3.5-5.1); Troponin High Sensitivity 4.1 pg/mL (<58.9)
--- NOTE | 2025-02-06 16:22 | RAD REPORT ---
EXAM: CT brain without contrast HISTORY: HEADACHE COMPARISON: None TECHNIQUE: Multiple contiguous axial images were obtained and a CT of the brain without contrast. Sag ittal and coronal reformats were performed. One or more of the following dose reduction techniques were used: Automated exposure control, adjust ment of the mA and/or kV according to patient size, and/or iterative reconstruction. FINDINGS: No evidence of hydrocephalus, intracranial hemorrhage, or extra-axial fluid collection. Mild generalized brain atrophy. Small focus of gliosis left occipital lobe may be from prior infarct . No evidence of midline shift or areas of brain edema. The calvarium is intact. The visualized paranasal sinuses and mastoid air cells are essentially clear . IMPRESSION: No evidence of acute intracranial abnormality. EXAM: CT of the cervical spine without contrast HISTORY: Neck pain, injury HEADACHE TECHNIQUE: Multiple contiguous axial images were obtained in a CT of the cervical spine without contr ast. Sagittal and coronal reformats were performed. FINDINGS: The vertebral bodies demonstrate normal height and alignment. No evidence of acute fracture or subluxation.. Disc arthroplasty C6-7. No prevertebral soft tissue swelling is seen. The posterior facets are well aligned. Normal alignment of the skull base with the cervical spine is seen. The lung apices are unremarkable. IMPRESSION: No evidence of acute osseous abnormality of the cervical spine.
--- NOTE | 2025-02-06 16:33 | RAD REPORT ---
EXAMINATION: CTA HEAD CLINICAL INDICATION: HEADACHE TECHNIQUE: Axial CT images were obtained through the head after intravenous contrast utilizing angiog raphic protocol with 3D post-processing (maximum intensity projection images, volume rendered images and/or shaded surface rendered images). One or more of the following dose reduction technique s were used: Automated exposure control, adjustment of the mA and/or kV according to patient size, and/or iterative reconstruction. Unless otherwise specified, incidental findings do not require dedic ated imaging follow-up. COMPARISON: No prior exam. FINDINGS: ICA: The petrous, cavernous, and supraclinoid segments of the bilateral internal carotid arteries are normal. The ophthalmic artery origins are visualized and normal. The posterior communicating arteries are patent. Prominent vessels in the orbits noted bilaterally, indeterminate, greater on the left. CARLOS: Anterior cerebral arteries are normal bilaterally. The anterior communicating artery is patent. MCA: Middle cerebral arteries are normal bilaterally. BALLISTICS PROFESSOR: Posterior cerebral arteries are normal bilaterally. Vertebrobasilar: The vertebral arteries are patent, right-sided dominant. The basilar artery is brendan l in appearance. 3D images confirm these findings. IMPRESSION: No significant intracranial flow abnormality is identified. Prominent vessels seen in both orbits, greater on the left. Consider follow-up ophthalmology consulta tion.
--- NOTE | 2025-02-06 16:36 | RAD REPORT ---
EXAMINATION: CTA NECK CLINICAL INDICATION: HEADACHE TECHNIQUE: Axial CT images were obtained from the aortic arch to the skull base after intravenous con trast utilizing angiographic protocol with 3D post-processing (maximum intensity projection images, volume rendered images and/or shaded surface rendered images). One or more of the following dose redu ction techniques were used: Automated exposure control, adjustment of the mA and/or kV according to patient size, and/or iterative reconstruction. Unless otherwise specified, incidental findings do not require dedicated imaging follow-up. COMPARISON: No prior exam. FINDINGS: AORTA: The imaged aortic arch is normal. CCA: The common carotid arteries are patent and normal in caliber. ICA/ECA: Bilateral internal and external carotid arteries are patent. There is no significant interna l carotid artery stenosis. Mild plaquing both carotid bulbs. VERTEBRAL: The cervical vertebral arteries are patent. Right vertebral artery appears dominant. SOFT TISSUE: No significant neck soft tissue abnormalities. The visualized lung apices are clear. 3D images confirm these findings. IMPRESSION: No significant flow abnormality of the neck vessels is identified. NASCET criteria used. Mild 0-49% stenosis Moderate 50-69% stenosis Severe 70-99% stenosis
[2025-02-06] MEDS ORDERED: FENTANYL CITR 100 MCG/2 ML ONE (17:07)
[2025-02-06] MEDS ORDERED: dexAMETHasone 10 MG/ML VIAL ONE (17:07)
--- NOTE | 2025-02-06 17:36 | EDPHYS ---
Physician Documentation [facility] Name: Lisseth Land Age: 49 yrs Sex: Female : 1975 Arrival Date: 02/06/2025 Time: 13:37 Bed 8 Private MD: CHAD Physician Namrata Poe HPI: 02/06 15:03 This 49 yrs old Female presents to ER via Ambulatory with complaints of High Blood sb4 Pressure, Blurred Vision, Migraine. 15:03 Patient reports a 4-day long migraine. She does report a history of migraines. States sb4 that she also has hypertension, takes losartan daily. States that she checked her blood pressure yesterday and it was elevated- 180/110. States that she was still feeling poorly today and her blood pressure remained elevated despite blood pressure medication and migraine medication. She reports associated blurry vision, dizziness, light and noise sensitivity. 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 - Infectious Disease History:: Denies. - Social history:: Smoking status: Patient denies any tobacco usage or history of. ROS: 15:03 Constitutional: Negative for fever, chills, and weight loss, sb4 15:03 Neuro: Positive for dizziness, headache, 15:03 All other systems are negative, Exam: 15:03 Constitutional: This is a well developed, well nourished patient who is awake, alert, sb4 and in no acute distress. Head/Face: Normocephalic, atraumatic. Eyes: Extra-ocular motions intact. Periorbital areas with no swelling, redness, or edema. ENT: Mucous membranes moist. Cardiovascular: Regular rate and rhythm with a normal S1 and S2. Respiratory: No increased work of breathing, no retractions or nasal flaring. Abdomen/GI: Soft, non-tender, no distension. Skin: Warm, dry with normal turgor. Normal color with no rashes, no lesions, and no evidence of cellulitis. MS/ Extremity: Pulses equal, no cyanosis. Neurovascular intact. Full, normal range of motion. Neuro: Awake and alert, GCS 15, oriented to person, place, time, and situation. Motor strength 5/5 in all extremities. Sensory grossly intact. Vital Signs: 14:04 BP 148 / 83; Pulse 83; Resp 18; Temp 98.4; Pulse Ox 98% ; Weight 100.7 kg; Height 5 ft. ap3 9 in. ; Pain 8/10; 15:03 BP 142 / 77; Pulse 72; Resp 16; Pulse Ox 99% on R/A; db 16:28 BP 131 / 76; Pulse 66; Resp 14; Pulse Ox 97% ; jb4 14:04 Body Mass Index 32.78 (100.70 kg, 175.26 cm) ap3 14:04 Pain Scale: Adult ap3 MDM: 13:50 Medical Screening Exam initiated sb4 17:39 Special discussion: I discussed with the patient the need to follow-up with the sb4 PCP/specialist for the noted incidental finding on X-ray/CT scanning. 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 Radiologist recommended dedicated neuro angiography and ophthalmology follow-up assessment. I did discuss these findings with attending physician and the patient. She states that her migraine symptoms have resolved. She denies any headache, any throbbing behind her eye, vision loss. She states that she has had some increasing blurry vision over the past few months that is being closely followed by her broom machine operator. She was told she had retinopathy which is contributing to her vision. Patient will call her broom machine operator/dry janitor tomorrow to schedule a follow-up appointment. I have provided patient with CT results. She understands all results and is in agreement with plan of care.. 17:42 Data reviewed: vital signs, nurses notes, lab test result(s), radiologic studies, I sb4 have discussed the patient's presentation/case with the attending Emergency Department Physician; and as a result, I will discharge patient. Consideration of Admission/Observation Escalation of care including admission/observation considered. Counseling: I had a detailed discussion with the patient and/or guardian regarding the historical points, exam findings, and any diagnostic results supporting the discharge/admit diagnosis, lab results, radiology results, the need for outpatient follow up, an opthalmologist, to return to the emergency department if symptoms worsen or persist or if there are any questions or concerns that arise at home. 02/06 14:31 Order name: Basic Metabolic Panel; Complete Time: 15:46 sb4 02/06 14:31 Order name: CBC with Diff; Complete Time: 16:00 sb4 02/06 14:31 Order name: High Sensitivity Troponin; Complete Time: 15:46 sb4 02/06 14:31 Order name: Protime (+inr); Complete Time: 15:46 sb4 02/06 14:31 Order name: Ptt, Activated; Complete Time: 15:46 sb4 02/06 14:31 Order name: CT Head Angio sb4 02/06 14:31 Order name: CT Neck Angio; Complete Time: 16:37 sb4 02/06 14:31 Order name: Head C Spine MPR Wo Con CT; Complete Time: 16:27 sb4 02/06 14:31 Order name: Cardiac monitoring; Complete Time: 15:15 sb4 02/06 14:31 Order name: IV Saline Lock; Complete Time: 15:40 sb4 02/06 14:31 Order name: Labs collected and sent; Complete Time: 15:15 sb4 02/06 14:31 Order name: O2 Per Protocol; Complete Time: 15:15 sb4 02/06 14:31 Order name: O2 Sat Monitoring; Complete Time: 15:15 sb4 02/06 14:31 Order name: Stroke Swallow Screen; Complete Time: 15:40 sb4 Administered Medications: 15:39 Drug: NS 0.9% IV 1000 ml IV at 1000 ml once; to be given as a bolus over 60 minutes jb4 Route: IV; Rate: 1000 ml; Site: right antecubital; 17:13 Follow up: Response: No adverse reaction; IV Status: Completed infusion; IV Intake: jb4 1000ml 15:39 Drug: Ketorolac IVP 30 mg IVP once Route: IVP; Site: right antecubital; jb4 17:13 Follow up: Response: No adverse reaction; Marked relief of symptoms; Pain is decreased jb4 15:39 Drug: metoCLOPramide IVP 10 mg IVP once; over 1 to 2 minutes Route: IVP; Site: right jb4 antecubital; 17:13 Follow up: Response: No adverse reaction; Marked relief of symptoms jb4 15:39 Drug: diphenhydrAMINE IVP 25 mg IVP once Route: IVP; Site: right antecubital; jb4 17:13 Follow up: Response: No adverse reaction; Marked relief of symptoms; Pain is decreased jb4 17:12 Drug: Decadron - Dexamethasone IVP 10 mg IVP once Route: IVP; Site: right antecubital; jb4 17:45 Follow up: Response: No adverse reaction; Marked relief of symptoms jb4 17:12 Drug: fentaNYL (PF) IVP 25 mcg IVP once Route: IVP; Site: right antecubital; jb4 17:45 Follow up: Response: No adverse reaction; Marked relief of symptoms jb4 Disposition Summary: 02/06/25 17:36 Discharge Ordered Notes: Location: Home sb4 Problem: new sb4 Symptoms: have improved sb4 Condition: Stable sb4 Diagnosis - Migraine with aura, not intractable, with status migrainosus sb4 - Essential (primary) hypertension sb4 Followup: sb4 - With: Private Physician - When: 2 - 3 days - Reason: Further diagnostic work-up, Recheck today's complaints, Re-evaluation by your physician Discharge Instructions: - Discharge Summary Sheet sb4 - Hypertension, Adult, [id number] sb4 - Migraine Headache, [id number] sb4 Forms: - Patient Portal Instructions sb4 - Leadership Thank You Letter sb4 Signatures: Dispatcher [employer] Nabil Britt MD MD rn Bryson, James RN RN jb4 Keisha May RN RN ap3 Philly Varela PA-C PAMarcos sb4 Corrections: (The following items were deleted from the chart) 14:31 14:31 BASIC METABOLIC PANEL+C.LAB.BRZ ordered. EDMS EDMS 14:31 14:31 CBC+H.LAB.BRZ ordered. EDMS EDMS 14:31 14:31 Troponin High Sensitivity+C.LAB.BRZ ordered. EDMS EDMS 14:31 14:31 PROTIME (+INR)+COAG.LAB.BRZ ordered. EDMS EDMS 14:31 14:31 PTT, ACTIVATED+COAG.LAB.BRZ ordered. EDMS EDMS 14:31 14:31 Head Angio+CT.RAD.BRZ ordered. EDMS EDMS 14:32 14:32 Neck Angio+CT.RAD.BRZ ordered. EDMS EDMS 14:32 14:32 Head C Spine MPR Wo Con+CT.RAD.BRZ ordered. EDMS EDMS 15:46 14:31 Accucheck ordered. sb4 sb4
--- NOTE | 2025-02-06 17:36 | ER ---
Nurse's Notes [facility] Name: Lisseth Land Age: 49 yrs Sex: Female : 1975 Arrival Date: 02/06/2025 Time: 13:37 Bed 8 Private MD: Diagnosis: Migraine with aura, not intractable, with status migrainosus;Essential (primary) hypertension Presentation: 02/06 14:04 Chief complaint: Patient states: she has had a migraine all weekend, and when she got ap3 to work this morning she checked her blood pressure it was high. patient is also reports double vision during her migraine, which she states is normal for her migraines. Coronavirus screen: At this time, the client does not indicate any symptoms associated with coronavirus-19. Ebola Screen: No symptoms or risks identified at this time. Initial Sepsis Screen: Does the patient meet any 2 criteria? No. Patient's initial sepsis screen is negative. Does the patient have a suspected source of infection? No. Patient's initial sepsis screen is negative. Risk Assessment: Do you want to hurt yourself or someone else? Patient reports no desire to harm self or others. Onset of symptoms was February 04, 2025. 14:04 Method Of Arrival: Ambulatory ap3 14:04 Acuity: RAOUL 3 ap3 Triage Assessment: 14:07 General: Appears in no apparent distress. Behavior is calm, cooperative, appropriate ap3 for age. Pain: Complains of pain in head Pain currently is 8 out of 10 on a pain scale. Pain began gradually, 2-3 days ago. Neuro: Level of Consciousness is awake, alert, obeys commands, Oriented to person, place, time, situation, Appropriate for age Reports blurred vision since 02/04/25 headache. Cardiovascular: Patient's skin is warm and dry. Respiratory: Airway is patent Respiratory effort is even, unlabored, Respiratory pattern is regular, symmetrical. 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 - Infectious Disease History:: Denies. - Social history:: Smoking status: Patient denies any tobacco usage or history of. Screenin:07 [facility] ED Fall Risk Assessment (Adult) History of falling in the last 3 months, ap3 including since admission Yes- single mechanical fall (1 pt) Confusion or Disorientation Intoxicated or Sedated No (0 pts) Impaired Gait No (0 pts) Mobility Assist Device Used No (0 pt) Altered Elimination No (0 pt) Score/Fall Risk Level 0 - 2 = Low Risk Oriented to surroundings, Maintained a safe environment, Educated pt \T\ family on fall prevention, incl call for assistance when getting out of bed, Assessed \T\ reinforced patient's understanding of fall precautions, Hourly rounding (assess needs \T\ fall precautionary measures) done, Used ambulatory aids as needed (educated on \T\ assisted with). Abuse screen: Denies threats or abuse. Nutritional screening: No deficits noted. Tuberculosis screening: No symptoms or risk factors identified. Assessment: 15:00 Reassessment: Patient appears in no apparent distress at this time. Patient and/or db family updated on plan of care and expected duration. Pain level reassessed. Patient is alert, oriented x 3, equal unlabored respirations, skin warm/dry/pink. General: Appears in no apparent distress. comfortable, Behavior is calm, cooperative. Pain: Complains of pain in head. Neuro: Level of Consciousness is awake, alert, obeys commands, Oriented to person, place, time, situation, Speech is normal. Respiratory: Airway is patent Respiratory effort is even, unlabored, Respiratory pattern is regular, symmetrical. 16:28 Reassessment: Patient appears in no apparent distress at this time. Patient and/or jb4 family updated on plan of care and expected duration. Pain level reassessed. Patient is alert, oriented x 3, equal unlabored respirations, skin warm/dry/pink. 17:44 Reassessment: Patient appears in no apparent distress at this time. Patient and/or jb4 family updated on plan of care and expected duration. Pain level reassessed. Patient is alert, oriented x 3, equal unlabored respirations, skin warm/dry/pink. Vital Signs: 14:04 BP 148 / 83; Pulse 83; Resp 18; Temp 98.4; Pulse Ox 98% ; Weight 100.7 kg; Height 5 ft. ap3 9 in. ; Pain 8/10; 15:03 BP 142 / 77; Pulse 72; Resp 16; Pulse Ox 99% on R/A; db 16:28 BP 131 / 76; Pulse 66; Resp 14; Pulse Ox 97% ; jb4 14:04 Body Mass Index 32.78 (100.70 kg, 175.26 cm) ap3 14:04 Pain Scale: Adult ap3 ED Course: 13:41 Patient arrived in ED. cj3 13:42 Philly Varela [facility]C [facility] sb4 13:42 Namrata Poe MD is Attending Physician. sb4 14:06 Triage completed. ap3 14:08 Arm band placed on right wrist. ap3 14:55 Irish Garrido, RN is Primary Nurse. db 15:13 Initial lab(s) drawn, by me, sent to lab. Inserted saline lock: 20 gauge in right db antecubital area, using aseptic technique. Blood collected. Flushed with 10 mL NS. 15:17 Patient has correct armband on for positive identification. Bed in low position. Call db light in reach. Side rails up X 1. Client placed on continuous cardiac and pulse oximetry monitoring. NIBP monitoring applied. compliance monitor on. Pulse ox on. NIBP on. 16:17 CT Head Angio In Process Unspecified. EDMS 16:17 CT Neck Angio In Process Unspecified. EDMS 16:17 Head C Spine MPR Wo Con CT In Process Unspecified. EDMS 16:28 Osiel Mendoza, RN is Primary Nurse. jb4 17:44 Provided Education on: discharge instuctions.. jb4 17:44 No provider procedures requiring assistance completed. IV discontinued, intact, jb4 bleeding controlled, No redness/swelling at site. Pressure dressing applied. Administered Medications: 15:39 Drug: NS 0.9% IV 1000 ml IV at 1000 ml once; to be given as a bolus over 60 minutes jb4 Route: IV; Rate: 1000 ml; Site: right antecubital; 17:13 Follow up: Response: No adverse reaction; IV Status: Completed infusion; IV Intake: jb4 1000ml 15:39 Drug: Ketorolac IVP 30 mg IVP once Route: IVP; Site: right antecubital; jb4 17:13 Follow up: Response: No adverse reaction; Marked relief of symptoms; Pain is decreased jb4 15:39 Drug: metoCLOPramide IVP 10 mg IVP once; over 1 to 2 minutes Route: IVP; Site: right jb4 antecubital; 17:13 Follow up: Response: No adverse reaction; Marked relief of symptoms jb4 15:39 Drug: diphenhydrAMINE IVP 25 mg IVP once Route: IVP; Site: right antecubital; jb4 17:13 Follow up: Response: No adverse reaction; Marked relief of symptoms; Pain is decreased jb4 17:12 Drug: Decadron - Dexamethasone IVP 10 mg IVP once Route: IVP; Site: right antecubital; jb4 17:45 Follow up: Response: No adverse reaction; Marked relief of symptoms jb4 17:12 Drug: fentaNYL (PF) IVP 25 mcg IVP once Route: IVP; Site: right antecubital; jb4 17:45 Follow up: Response: No adverse reaction; Marked relief of symptoms jb4 Medication: 15:18 VIS not applicable for this client. db Intake: 17:13 IV: 1000ml; Total: 1000ml. jb4 Outcome: 17:36 Discharge ordered by . sb4 17:45 Discharged to home ambulatory, with family, jb4 17:45 Condition: stable 17:45 Discharge instructions given to patient, Instructed on discharge instructions, follow up and referral plans. Demonstrated understanding of instructions, follow-up care, 17:45 Patient left the ED. jb4 Signatures: Dispatcher [employer] EDMS Osiel Mendoza RN RN jb4 Keisha May RN RN ap3 Irish Garrido RN RN Philly Saab, PA-C PA-C sb4 Randi De La Rosa cj3
[2025-02-06 18:02] VITALS: TEMP 98.4
[2025-02-06 18:08] VITALS: BP 131/76; O2SAT 97
== END 2025-02-06 17:45 | disposition home or self-care (01) ==
LOC: ER 13:37
DX: G43.101 Migraine with aura, not intractable, with status migrainosus (principal); I10 Essential (primary) hypertension
CPT/HCPCS: 96361; 85025; 80048; 36415; 85610; 85730; 84484; 70450; 72125; 70496; 70498; 96375; 96374; 99285; Q9967; J2765; J1200; J3010; J1100; J7030